=== PATIENT | female | born 1965 | race Caucasian/White ===

== ENCOUNTER 2020-06-15 16:26 | Outpatient (REF) | payer OTHER, SELFPAY ==
--- NOTE | ~2020-06-15 | XR_ITS ---
EXAMINATION: XR KNEE, LEFT CLINICAL INFORMATION: Injury COMPARISON: None TECHNIQUE: Four views of the left knee. FINDINGS: No visible acute fracture or dislocation. Normal alignment. Joint spaces are maintained. No significant effusion. XR/XR knee LT 4V IMPRESSION: No radiographic evidence of acute osseous abnormality.
== END 2020-06-15 16:27 | disposition home or self-care (01) ==
LOC: HO.HMGCX 16:26
PROVIDERS: PCP Nurse Practitioner Family; Visit Provider Physician Assistant Medical
DX: S89.92XA Unspecified injury of left lower leg, initial encounter (principal)
CPT/HCPCS: 73564

== ENCOUNTER 2021-02-03 06:03 | Outpatient (REF) | payer OTHER, SELFPAY | END 2021-02-03 06:04 | disposition home or self-care (01) | LOC: HO.HMGCLDS 06:03 | PROVIDERS: PCP Nurse Practitioner Family; Visit Provider Nurse Practitioner Family | DX: Z13.89 Encounter for screening for other disorder (principal) ==

== ENCOUNTER 2021-02-03 06:08 | Outpatient (REF) | payer OTHER, SELFPAY ==
[2021-02-03 11:37] LABS: Appearance Urine CLEAR; Color Urine YELLOW; Glucose Urine UA NEG (NEG); Leukocyte Esterase Urine NEG (NEG); Nitrite Urine NEG (NEG); Specific Gravity - Urine 1.015 (1.005-1.025); UACC Culture Trigger NO; Urine Blood TRACE (NEG); Urine Ketones NEG (NEG); Urine Protein NEG (NEG-TRACE)
[2021-02-03 12:14] LABS: Alanine Aminotransferase 20 U/L (0-31); Albumin Level 4.2 g/dL (3.5-5.0); Alkaline Phosphatase 86 U/L (39-117); Anion Gap 14 (12-20); Aspartate Amino Transferase 23 U/L (5-31); Bilirubin Total 0.8 mg/dL (0.0-1.0); Blood Urea Nitrogen 14 mg/dL (9-16); Calcium 9.1 mg/dL (8.4-10.2); Carbon Dioxide 22 mmol/L (22-29); Chloride 104 mmol/L (96-108); Cholesterol 176 mg/dL; Estimated Glomerular Filt Rate > 60; Glucose Fasting 88 mg/dL (60-99); HDL Cholesterol 53 mg/dL; LDL Cholesterol Calculated 93 mg/dl; Potassium 4.1 mmol/L (3.3-5.1); Sodium 136 mmol/L (135-145); Triglycerides 152 mg/dL
[2021-02-03 12:16] LABS: Squamous Epithelial Cell Urine 1+ /LPF
[2021-02-03 12:17] LABS: Bacteria Urine 1+ /LPF; RBC Urine 0-2 /HPF (0); WBC Urine 0-2 /HPF (0-4)
[2021-02-03 12:37] LABS: TSH reflex Free T4 5.81 uIU/mL (0.32-4.0)
[2021-02-03 13:18] LABS: Free T4 (Free Thyroxine) 0.92 ng/dL (0.71-1.85)
== END 2021-02-03 06:09 | disposition home or self-care (01) ==
LOC: HO.HMGCLDS 06:08
PROVIDERS: PCP Nurse Practitioner Family; Visit Provider Internal Medicine
DX: Z00.00 Encounter for general adult medical examination without abnormal findings (principal); Z20.822 Contact with and (suspected) exposure to COVID-19; R79.89 Other specified abnormal findings of blood chemistry
CPT/HCPCS: 36415; 80053; 80061; 81001; 84439; 84443; C9803; U0003; U0005

== ENCOUNTER 2021-03-30 08:29 | Outpatient (REF) | payer OTHER, SELFPAY ==
[2021-03-30 12:08] LABS: TSH reflex Free T4 2.51 uIU/mL (0.32-4.0)
[2021-04-01 05:31] LABS: Thyroid Peroxidase Antibodies 2 IU/mL (<9)
== END 2021-03-30 08:30 | disposition home or self-care (01) ==
LOC: HO.HMGCLDS 08:29
PROVIDERS: Visit Provider Nurse Practitioner Family
DX: R79.89 Other specified abnormal findings of blood chemistry (principal)
CPT/HCPCS: 36415; 84443; 86376

== ENCOUNTER 2021-05-26 10:21 | Outpatient (REF) | payer OTHER, SELFPAY ==
--- NOTE | ~2021-05-26 | MM_ITS ---
EXAMINATION: MM SCREENING DIGITAL BREAST TOMOSYNTHESIS, BILATERAL CLINICAL INFORMATION: Screening. Asymptomatic. Remote history left surgery over 20 years ago. The lifetime risk of breast cancer based on the Tyrer-Cuzick Model is 7%. COMPARISON: Mammography: 08/15/2018, 04/05/2017, 02/19/2016 TECHNIQUE: Digital breast tomosynthesis is performed in both the craniocaudal and mediolateral oblique views along with computer-aided detection (CAD). Synthesized 2D images are generated from the tomosynthesis. Additional left CC view is provided. FINDINGS: There are scattered areas of fibroglandular density (ACR BI-RADS breast composition Category b). There are scattered stable asymmetries similar to prior exams. There is no interval mass or architectural abnormality or developing density or abnormal calcifications. The axilla and skin contours are unremarkable. The left breast has a chronic macrolobulated mass mid 12:00 position similar in size and morphology to prior studies. There are some fine calcifications associated with the mass which are also without change. MM/MM tomosynthesis screening BI IMPRESSION: No significant changes from prior exams. ASSESSMENT: BI-RADS 2: Benign RECOMMENDATION: Routine annual mammography screening. This patient's information was entered into a reminder system with a target due date for their next mammogram.
== END 2021-05-26 10:22 | disposition home or self-care (01) ==
LOC: HO.MAMMO 10:21
PROVIDERS: PCP Nurse Practitioner Family; Visit Provider Nurse Practitioner Family
DX: Z12.31 Encounter for screening mammogram for malignant neoplasm of breast (principal)
CPT/HCPCS: 77063; 77067

== ENCOUNTER 2021-06-03 09:40 | Outpatient (REF) | payer OTHER, SELFPAY ==
--- NOTE | ~2021-06-03 | XR_ITS ---
Indication: Pain EXAMINATION: Right foot and right ankle 3 views the right foot do not demonstrate evidence for an acute fracture or dislocation. Spurring in the posterior calcaneus is noted. Scattered degenerative changes. 2 detail views of the right ankle do not demonstrate acute finding. No fracture or dislocation. XR/XR ankle RT 2V IMPRESSION: No acute finding. Right ankle, right foot
--- NOTE | ~2021-06-03 | XR_ITS ---
Indication: Pain EXAMINATION: Right foot and right ankle 3 views the right foot do not demonstrate evidence for an acute fracture or dislocation. Spurring in the posterior calcaneus is noted. Scattered degenerative changes. 2 detail views of the right ankle do not demonstrate acute finding. No fracture or dislocation. XR/XR foot RT min 3V IMPRESSION: No acute finding. Right ankle, right foot
== END 2021-06-03 09:41 | disposition home or self-care (01) ==
LOC: HO.HMGCX 09:40
PROVIDERS: Visit Provider Nurse Practitioner Family
DX: M79.671 Pain in right foot (principal); M25.571 Pain in right ankle and joints of right foot
CPT/HCPCS: 73600; 73630

== ENCOUNTER 2022-05-31 09:32 | Outpatient (REF) | payer OTHER, SELFPAY ==
[2022-06-01 19:43] LABS: HPV mRNA E6/E7 rflx Not Detected (Not Detected)
== END 2022-05-31 09:33 | disposition home or self-care (01) ==
LOC: HO.LNP 09:32
PROVIDERS: Visit Provider Advanced Practice Midwife
DX: Z01.419 Encounter for gynecological examination (general) (routine) without abnormal findings (principal); Z11.51 Encounter for screening for human papillomavirus (HPV)
CPT/HCPCS: 87624; 88142

== ENCOUNTER 2022-05-31 09:59 | Outpatient (REF) | payer OTHER, SELFPAY ==
--- NOTE | ~2022-05-31 | MM_ITS ---
EXAMINATION: MM SCREENING DIGITAL BREAST TOMOSYNTHESIS, BILATERAL CLINICAL INFORMATION: Screening. Asymptomatic. The lifetime risk of breast cancer based on the Tyrer-Cuzick Model is 5%. COMPARISON: Mammography: 05/26/2021, 08/15/2018, 04/05/2017, 02/19/2016, 02/16/2016 TECHNIQUE: Digital breast tomosynthesis is performed in both the craniocaudal and mediolateral oblique views along with computer-aided detection (CAD). Synthesized 2D images are generated from the tomosynthesis. FINDINGS: There are scattered areas of fibroglandular density (ACR BI-RADS breast composition Category b). Parenchymal pattern is similar to prior studies and there is no interval mass, architectural abnormality, or developing density. No abnormal calcifications. There is a chronic macrolobulated mass anterior mid 12:00 left breast with some internal calcifications similar to multiple prior studies. The axilla and skin contours are unremarkable. No significant changes. MM/MM tomosynthesis screening BI IMPRESSION: No mammographic evidence of malignancy. ASSESSMENT: BI-RADS 2: Benign RECOMMENDATION: Routine annual mammography screening. This patient's information was entered into a reminder system with a target due date for their next mammogram.
== END 2022-05-31 10:00 | disposition home or self-care (01) ==
LOC: HO.MAMMO 09:59
PROVIDERS: PCP Nurse Practitioner Family; Visit Provider Nurse Practitioner Family
DX: Z12.31 Encounter for screening mammogram for malignant neoplasm of breast (principal)
CPT/HCPCS: 77063; 77067

== ENCOUNTER 2022-10-07 14:11 | Outpatient (AMB) | payer OTHER, SELFPAY ==
[2022-10-07 14:37] VITALS: BP 118/68; PULSE 93; TEMP 36.3; O2SAT 99; BMI 29.0
--- NOTE | 2022-10-07 14:37 | AM.OFFWIN_ITS ---
Intake Vital Signs 10/07/22 14:37 Height 5 ft 5 in Weight 174 lb 4 oz BMI 29.0 BP 118/68 Blood Pressure Location Lt brachial Position Sitting Pulse 93 Pulse Source Pulse Oximeter Temp 97.3 F Temp Source Temporal Artery Scan Pulse Oximetry (%) 99 Oxygen Delivery Method Room Air Intake Visit Reasons: EST/numbness in fingers and toes Intake Note: Pt is here c/o feeling numbness in all her fingers and toes. Pt states it has been happening for about one month. Pt states it comes and goes but has been getting worse. Pt states she was diagnosed with degenerative disc disease in her neck and back. Patient Tobacco Use Status: Current everyday Tobacco user Allergies codeine [CODEINE] Allergy (Severe, Verified 10/07/22 14:38) ITCHY, itch aspirin Allergy (Unknown, Verified 10/07/22 14:38) upset stomach Do you need a note to return to daycare/school/sports/work: No HPI HPI Comments History of Present Illness Details This is a 57-year-old female who presents to the office today for sick visit. Patient complaining of symmetrical numbness of her toes and fingers/hands . Patient states the numbness of her fingers/hands is chronic but has been worsening over the past several weeks; she reports a history of degenerative disc disease of her cervical spine. She denies any new neck injury/trauma. She also reports somewhat new numbness of her toes and her right lower extremity occasionally gives out on her. She denies any falls or syncope. She denies any new back injury/trauma. She denies any red flag symptoms including saddle anesthesias, fever/chills, or bowel/bladder incontinence/retention. She denies a history of diabetes mellitus. [facility] Medical History High cholesterol Hypertension Surgical History History of lumpectomy of left breast History of tonsillectomy Status post cryoablation Family History Father Heart failure CVD (cardiovascular disease) S/P triple vessel bypass Mother Lung cancer Social History (Reviewed 05/31/22 @ 11:15 by ANTONIETTA Burkett Housing: Apartment Alcohol intake: current Alcohol intake frequency: a few times a week Patient Tobacco Use Status: Current everyday Tobacco user Cigarettes Per Day: 8 e-Cigarette/Vaping Use: Never Used Second Hand Smoke Exposure: No service: No Current occupational status: disabled Sexual orientation: Straight/Heterosexual Gender identity: Female Review of Systems Const All systems reviewed & are unremarkable except as noted in HPI and below Reports no additional complaints Eyes Reports no additional complaints ENT Reports no additional complaints Card Reports no additional complaints Resp Reports no additional complaints GI Reports no additional complaints Reports no additional complaints Musc Reports no additional complaints Skin/Breast Reports system reviewed and no additional complaints, except as documented Neuro Reports no additional complaints Psych Reports no additional complaints Endo Reports no additional complaints Giovani/Lymph Reports no additional complaints Aller/Immun Reports no additional complaints Physical Exam Vital Signs: Last Vital Signs Temp 97.3 F 10/07/22 14:37 Pulse 93 10/07/22 14:37 BP 118/68 10/07/22 14:37 Pulse Ox 99 10/07/22 14:37 Oxygen Delivery Method Room Air 10/07/22 14:37 BMI result Body Mass Index 29.0 Const General: cooperative, healthy appearing, no acute distress and well developed Orientation/consciousness: patient oriented x3 HEENT Head: Yes normal to inspection Ears: hearing grossly normal bilaterally General nose exam: Normal external nose present Face and sinus: Yes normal facial exam Mouth: Normal oral and palatal mucosa present Eyes General: appearance normal, both eyes and all related structures Pupils: Equal, round and reactive pupils present EOM: EOMs intact bilaterally Resp Effort & Inspection: normal respiratory effort and no respiratory distress Auscultation: clear to auscultation bilaterally Cardio Rate: regular rate Rhythm: regular rhythm Heart sounds: no gallops, no murmurs and no rubs Peripheral pulses: Peripheral pulses 2+ throughout GI Inspection: No distended Palpation (GI): Soft to palpation and nontender Auscultation: normal bowel sounds Back/Spine/Pelvis Other: No midline or spinous process tenderness to palpation throughout the cervical, thoracic, or lumbar spine. Mild cervical and lumbar paraspinal musculature tenderness to palpation with some palpable spasms. Negative straight leg raise bilaterally. DTRs are 2+ bilaterally. Cervical Spine: No cervical muscular tenderness Skin General skin exam: no rashes or lesions noted Neuro General: patient oriented x3 Cranial nerves: Yes CN's II-XII intact bilaterally and Yes Equal, round and reactive pupils present Gait exam (Neuro): Normal gait present Motor exam (neuro): 5/5 motor strength present throughout Extrem General: Yes normal to inspection, Yes full ROM and Yes no clubbing, cyanosis or edema Psych Appearance: grossly normal Mental Status: mental status grossly normal Assessment & Plan Assessment & Plan (1) Peripheral neuropathy: Code(s): G62.9 - Polyneuropathy, unspecified (2) Radiculopathy affecting upper extremity: Code(s): M54.10 - Radiculopathy, site unspecified Plan This is a 57-year-old female presenting to the office with numbness of fingers and toes and some weakness of her right lower extremity. Differential diagnosis includes peripheral neuropathy versus lumbar/cervical radiculopathy. Her vital signs are stable. Patient's physical examination is benign with the exception of mild cervical and lumbar paraspinal musculature and spasm. Trial p.o. gabapentin 300 mg at bedtime and p.o. methocarbamol 500 mg at bedtime as needed for muscle spasms. Patient has an appointment scheduled with her PCP on November 23, 2022. She was encouraged to discuss these new symptoms and possibly undergo further imaging including CT or MRI of her cervical/lumbar spine to evaluate for worsening degenerative disc disease causing disc herniation/nerve impingement and to further evaluate for diabetes mellitus. Patient was advised to proceed directly to the emergency room if she were to develop any red flag symptoms. Patient verbalizes her understanding and she is in agreement with the plan. Patient was advised that gabapentin and methocarbamol can be mildly sedating so she was advised not to drive or operate heavy machinery while utilizing these medications. Patient also baby-sits her granddaughter and she was advised not to utilize his medications while taking care of children. Medications: New gabapentin 300 mg PO BEDTIME 30 caps 0RF methocarbamol 500 mg PO BEDTIME PRN 30 tabs 0RF muscle spasm Coding Level of Care Code Est Pt Level 3 (01060) Diagnoses Peripheral neuropathy G62.9 Radiculopathy affecting upper extremity M54.10
== END 2022-10-07 16:01 | disposition home or self-care (01) ==
PROVIDERS: PCP Nurse Practitioner Family; Visit Provider Physician Assistant Medical
DX: G62.9 Polyneuropathy, unspecified (principal)
CPT/HCPCS: 99213

== ENCOUNTER 2023-03-06 08:00 | Outpatient (AMB) | payer OTHER, SELFPAY ==
[2023-03-06 08:09] VITALS: BP 116/72; PULSE 80; TEMP 36.7; O2SAT 97
--- NOTE | 2023-03-06 08:09 | AM.OFFWIN_ITS ---
Intake Vital Signs 03/06/23 08:09 Height 5 ft 5 in BP 116/72 Blood Pressure Location Rt brachial Position Sitting Pulse 80 Pulse Source Pulse Oximeter Temp 98.0 F Temp Source Temporal Artery Scan Pulse Oximetry (%) 97 Intake Visit Reasons: EST/right eye irritation (lobby) Intake Note: pt is here for c/o right eye irritation Patient Tobacco Use Status: Current everyday Tobacco user Allergies codeine [CODEINE] Allergy (Severe, Verified 03/06/23 08:09) ITCHY, itch aspirin Allergy (Unknown, Verified 03/06/23 08:09) upset stomach Do you need a note to return to daycare/school/sports/work: Yes HPI HPI Comments History of Present Illness Details Patient presents to the walkin today for irritation to the right eye since yesterday. Initially felt like she had an eyelash in her eye, flushed but irritation persisted. Endorses right eye itching, redness and drainage since yesterday. Today eye was crusted shut when she woke up. She states today left eye started to be red and itchy also Denies pain to the eye, denies vision changes, headache. Patient denies pain with eye movement. Denies fever, sore throat or ear ache. Denies trauma to the eye. [facility] Medical History High cholesterol Hypertension Surgical History History of lumpectomy of left breast History of tonsillectomy Status post cryoablation Family History Father Heart failure CVD (cardiovascular disease) S/P triple vessel bypass Mother Lung cancer Social History Housing: Apartment Alcohol intake: current Alcohol intake frequency: a few times a week Patient Tobacco Use Status: Current everyday Tobacco user Cigarettes Per Day: 8 e-Cigarette/Vaping Use: Never Used Second Hand Smoke Exposure: No service: No Current occupational status: disabled Sexual orientation: Straight/Heterosexual Gender identity: Female Review of Systems Const All systems reviewed & are unremarkable except as noted in HPI and below Physical Exam Vital Signs: Last Vital Signs Temp 98.0 F 03/06/23 08:09 Pulse 80 03/06/23 08:09 BP 116/72 03/06/23 08:09 Pulse Ox 97 03/06/23 08:09 General: awake, alert, oriented. Answers questions appropriately. Fully engaged in examination. Skin: warm, dry, intact HEENT: Normocephalic. Hearing intact. eye: + clear discharge, conjunctival injection bilaterally, right worse than left. PERRL Cardiac: External chest normal in appearance. Respiratory: No cough, audible wheezing or stridor. Abdomen: without gross distension. MS: No obvious swelling or deformities. Neurological: Oriented to person, place, time and situation. Thought process in tact. Psychiatric: Appropriate mood and affect. Good judgment and insight. Assessment & Plan Assessment & Plan (1) Conjunctivitis: Code(s): H10.9 - Unspecified conjunctivitis Qualifiers: Conjunctivitis type: acute Laterality: bilateral Plan Patient presents to the walkin for bilateral eye irritation +discharge and conjunctival injection consistent with conjunctivitis bilaterally ABX drops, 1 drop to both eyes four times daily. Avoid touching, rubbing the eyes. Do not use same area of facecloth to clean both eyes. Wash hands often. All questions and concerns were answered during the visit. Patient agrees with the plan. Follow up with pcp or return to [facility] and home for any new or worsening symptoms. Medications: New polymyxin B sulf-trimethoprim 10,000 unit- 1 mg/mL while awake; do not exceed 6 doses in 24 hours 1 drp ophthalmic (eye) QID 7 days 10 mL 0RF Coding Level of Care Code Est Pt Level 4 (50466) Diagnoses Conjunctivitis H10.9 Conjunctivitis type: acute Laterality: bilateral
== END 2023-03-06 09:01 | disposition home or self-care (01) ==
PROVIDERS: PCP Nurse Practitioner Family; Visit Provider Registered Nurse Emergency
DX: H10.9 Unspecified conjunctivitis (principal)
CPT/HCPCS: 99214

== ENCOUNTER 2023-06-23 08:04 | Outpatient (REF) | payer OTHER, SELFPAY ==
--- NOTE | ~2023-06-23 | MM_ITS ---
EXAMINATION: MM SCREENING DIGITAL BREAST TOMOSYNTHESIS, BILATERAL CLINICAL INFORMATION: Screening. Asymptomatic. COMPARISON: Mammography: This study is compared with prior exams dating back to 2018. TECHNIQUE: Digital breast tomosynthesis is performed in both the craniocaudal and mediolateral oblique views along with computer-aided detection (CAD). Synthesized 2D images are generated from the tomosynthesis. FINDINGS: There are scattered areas of fibroglandular density (ACR BI-RADS breast composition Category b). There are no significant masses, abnormal calcifications, or other abnormalities. There is unchanged, benign, oval focal asymmetry in the superior aspect of the left breast which is associated with unchanged benign calcifications. MM/MM tomosynthesis screening BI IMPRESSION: No mammographic evidence of malignancy. ASSESSMENT: BI-RADS BI-RADS 1 - Negative RECOMMENDATION: Routine annual mammography screening. 1 year F/U This examination should not preclude the clinical evaluation of a suspicious palpable abnormality. This patient's information was entered into a reminder system with a target due date for their next mammogram.
== END 2023-06-23 08:05 | disposition home or self-care (01) ==
LOC: HO.MAMMO 08:04
PROVIDERS: PCP Nurse Practitioner Family; Visit Provider Nurse Practitioner Family
DX: Z12.31 Encounter for screening mammogram for malignant neoplasm of breast (principal)
CPT/HCPCS: 77063; 77067

== ENCOUNTER → 2023-06-23 08:30 | Outpatient (BNV) | payer OTHER, SELFPAY | PROVIDERS: PCP Nurse Practitioner Family; Visit Provider Radiology Diagnostic Radiology | DX: Z12.31 Encounter for screening mammogram for malignant neoplasm of breast (principal) | CPT/HCPCS: 77063; 77067 ==

== ENCOUNTER 2023-09-12 12:49 | Outpatient (AMB) | payer OTHER, SELFPAY ==
--- NOTE | 2023-09-12 13:01 | MHC.PC.OV ---
Vital Signs 09/12/23 13:04 Height 5 ft 5 in Weight 166 lb BMI 27.6 BP 112/70 Blood Pressure Location Rt brachial Position Sitting Pulse 68 Pulse Source Pulse Oximeter Pulse Oximetry (%) 97 Oxygen Delivery Method Room Air Intake Visit Reasons: PE last seen 2021 Intake Note: Patient here for physical exam. Mammo:2023 Pap: 2023 Allergies codeine [CODEINE] Allergy (Severe, Verified 09/12/23 15:03) ITCHY, itch aspirin Allergy (Unknown, Verified 09/12/23 15:03) upset stomach Medication List - Last Reconciled 09/12/23 by AMBER Sinha polymyxin B sulf-trimethoprim 10,000 unit- 1 mg/mL 1 drp ophthalmic (eye) QID 7 days Tobacco use date assessed: 09/12/23 Dental Screening Dental Screen Date: 09/12/23 Did you have a dental visit in the last 12 months?: No Did you have a dental problem in the last 6 months where you did not have access to dental care?: No Was dental information given to patient?: Patient declined HPI PE last seen 2021 HPI Details Pt is here for a PE. Will order labs. Colon screen is up to date. Mammo is up to date. 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 Pt has been smoking since age 11. She has smoked up to 2 packs per day but mostly smokes 1 pack per day. Will refer for low-dose CT. Pt is fair skinned and has multiple freckles and skin lesions. Will refer to derm. [facility] Medical History Hypertension High cholesterol Surgical History Status post cryoablation History of lumpectomy of left breast History of tonsillectomy Family History Father Heart failure CVD (cardiovascular disease) S/P triple vessel bypass Mother Lung cancer Social History Housing: Apartment Alcohol intake: current Alcohol intake frequency: a few times a week Patient Tobacco Use Status: Current everyday Tobacco user Cigarettes Per Day: 8 e-Cigarette/Vaping Use: Never Used Second Hand Smoke Exposure: No service: No Current occupational status: disabled Sexual orientation: Straight/Heterosexual Gender identity: Female Cognitive needs: No Hearing needs: No Vision needs: No Questionnaire PHQ-9 Over the last 2 weeks, how often have you been bothered by any of the following problems? 1. Little interest or pleasure in doing things: not at all 2. Feeling down, depressed, or hopeless: not at all 3. Trouble falling or staying asleep, or sleeping too much: several days 4. Feeling tired or having little energy: several days 5. Poor appetite or overeating: not at all 6. Feeling bad about yourself - or that you are a failure or have let yourself or your family down: not at all 7. Trouble concentrating on things, such as reading the newspaper or watching television: not at all 8. Moving or speaking so slowly that other people could have noticed. Or the opposite - being so fidgety or restless that you have been moving around a lot more than usual: not at all 9. Thoughts that you would be better off or of hurting yourself in some way: not at all Total score: 2 Depression Screening Interpretation: Negative Depression Screening Done: Yes 28035 - PHQ-9 Billing: Yes Source: Developed by Drs. Damon Zavala, Geraldine Will, Vinny Don and colleagues, with an educational narendra from [employer]. Thrive Questionnaire Date Thrive assessed: 09/12/23 I am a: Patient What is your living situation today?: I have a steady place to live Within the past 12 months, did the food you bought not last and you didn't have the money to get more?: Sometimes True Within the past 12 months, did you worry whether your food would run out before you got money to buy more?: Sometimes True Do you have trouble paying for medicines?: No Do you have trouble getting transportation to medical appointments?: No Do you have trouble paying your heating and electricity bill?: No Do you have trouble taking care of your child, family member or friend?: No Do you have trouble with day-to-day activities such as bathing, preparing meals, shopping, managing finances, etc.?: No Are you currently unemployed and looking for a job?: No Are you interested in more education?: No Please select the resources that you would like help with: Housing/Detention Currently or been in a relationship where the following occur: No concerns reported THRIVE Score: 2 AUDIT C Alcohol Use Questionnaire (AUDIT-C) 1. How often do you have a drink containing alcohol?: 2-4 times a month 2. How many drinks containing alcohol do you have on a typical day when you are drinking?: 1 or 2 3. How often do you have six or more drinks on one occasion?: Never Total Score: 2 JOSE-7 AMB Questionnaire JOSE-7 Date JOSE - 7 assessed: 09/12/23 Feeling nervous, anxious, or on edge: 0 = Not at all Not being able to stop or control worryin = Several days Worrying too much about different things: 1 = Several days Trouble relaxin = Not at all Being so restless that it is hard to sit still: 0 = Not at all Becoming easily annoyed or irritable: 0 = Not at all Feeling afraid as if something awful might happen: 0 = Not at all Total JOSE-7 score (0-4 normal; 5-9 mild; 10-14 moderate; 15-21 severe): 2 Source: Developed by Drs. Damon Zavala, Geraldine Will, Vinny Don and colleagues, with an educational narendra from [employer]. JOSE-7 Assessment Billing JOSE-7 Assessment Tool: JOSE-7 Assessment 94194 Review of Systems Const Denies chills and Denies fever(s) Eyes Denies blurry vision ENT Denies vertigo, Denies dizziness and Denies sore throat Card Denies chest pain at rest, Denies chest pain with activity, Denies diaphoresis, Denies dyspnea and Denies dyspnea on exertion Resp Denies cough, Denies dyspnea, Denies dyspnea on exertion and Denies wheezing GI Denies abdominal pain, Denies melena, Denies hematochezia, Denies constipation, Denies diarrhea and Denies loose stools Denies hematuria Musc Denies numbness and Denies tingling Skin/Breast Denies lesions Neuro Denies vertigo, Denies dizziness, Denies numbness and Denies tingling Psych Denies anxiety, Denies depression, Denies homicidal ideation, Denies suicidal ideation and Denies other (substance abuse) Aller/Immun Denies wheezing Physical exam (Primary Care) Vital Signs: Last Vital Signs Pulse 68 09/12/23 13:04 BP 112/70 09/12/23 13:04 Pulse Ox 97 09/12/23 13:04 Oxygen Delivery Method Room Air 09/12/23 13:04 BMI result Body Mass Index 27.6 Tobacco/Smoking Status: Tobacco use Status Tobacco use date assessed 09/12/23 09/12/23 13:08 Patient Tobacco Use Status Current everyday Tobacco 09/12/23 13:02 e-Cigarette/Vaping Use Never Used 09/12/23 13:02 PHQ-9: PHQ-9 Score PHQ-9: Total score 2 09/12/23 13:22 Depression Screening Interpretation: Negative Thrive Assessment: Date of Thrive Assessment Date Thrive assessed 09/12/23 09/12/23 13:02 Currently or been in a relationship where the following occur: No concerns reported Const General: cooperative Nutritional Appearance: well nourished Orientation/consciousness: patient oriented x3 HENMT Head: Yes normal to inspection, Yes normocephalic and Yes atraumatic Ears: TM's normal bilaterally Eyes General: appearance normal, both eyes and all related structures Alignment and Position: alignment normal and position normal Neck Neck: Yes normal visual inspection and Yes no lymphadenopathy Thyroid: Thyroid normal Resp Effort & Inspection: normal respiratory effort Auscultation: clear to auscultation bilaterally Cardio Rate: regular rate Rhythm: regular rhythm Heart sounds: S1 normal heart sound present, S2 normal heart sound present and no murmurs GI Palpation (GI): Soft to palpation and nontender Auscultation: normal bowel sounds Skin Other: very fair skinned, multiple freckles throughout body, small raised lesion to right shoulder, raised darker lesion to left upper back, papular raised lesion to right trap region Rashes: no rashes Neuro General: patient oriented x3, moves all extremities, no focal motor deficits and deep tendon reflexes 2+ bilaterally Romberg Test: Negative Psych Appearance: grossly normal Mental Status: mental status grossly normal Speech and movement: Normal speech and movement present Affect: normal affect Attitude: cooperative Thought process: Normal thought process present Thought content: Normal thought content present Insight: Good insight present (Psych) Judgement: Good judgement present (Psych) Assessment and Plan Assessment & Plan (1) Smoker: Code(s): F17.200 - Nicotine dependence, unspecified, uncomplicated Plan: Referred for low-dose CT (2) Vitamin D deficiency: Code(s): E55.9 - Vitamin D deficiency, unspecified Plan: Labs ordered (3) Skin lesion: Code(s): L98.9 - Disorder of the skin and subcutaneous tissue, unspecified Plan: Referred to derm (4) Blood typing encounter: Code(s): Z.83 - Encounter for blood typing Plan The patient agreed to the use of a registered medical assistant for this encounter. Scribed for LISA Salas-BC by Mayi Ward registered medical assistant, on 09/12/2023 at 13:25 EST. Orders: Orders Complete Blood Count Auto Diff Today F17.200 - Nicotine dependence, unspecified, uncomplicated Comprehensive [place]. Panel Fast Today F17.200 - Nicotine dependence, unspecified, uncomplicated TSH reflex Free T4 Today F17.200 - Nicotine dependence, unspecified, uncomplicated Lipid Panel Today F17.200 - Nicotine dependence, unspecified, uncomplicated UA CC w/rflx Micro + Cult Today F17.200 - Nicotine dependence, unspecified, uncomplicated Vitamin D 25-OH Total Today E55.9 - Vitamin D deficiency, unspecified ABO RH Type Today Z01.83 - Encounter for blood typing Referrals Lung Cancer Screening Referral F17.200 - Nicotine dependence, unspecified, uncomplicated Dermatology Referral L98.9 - Disorder of the skin and subcutaneous tissue, unspecified Coding Level of Care Code Est Pt Prev Care 40-64y(01711) Diagnoses Smoker F17.200 Vitamin D deficiency E55.9 Skin lesion L98.9 Blood typing encounter Z Additional Codes JOSE-7 Assessment Billing - JOSE-7 Assessment Tool: JOSE-7 Assessment 25975 ([id number])
[2023-09-12 13:04] VITALS: BP 112/70; PULSE 68; O2SAT 97; BMI 27.6
== END 2023-09-12 13:49 | disposition home or self-care (01) ==
PROVIDERS: PCP Nurse Practitioner Family; Visit Provider Nurse Practitioner Family
DX: Z00.00 Encounter for general adult medical examination without abnormal findings (principal); F17.210 Nicotine dependence, cigarettes, uncomplicated; E55.9 Vitamin D deficiency, unspecified; L98.9 Disorder of the skin and subcutaneous tissue, unspecified; Z01.83 Encounter for blood typing
CPT/HCPCS: 99396

== ENCOUNTER 2023-09-13 06:06 | Outpatient (REF) | payer OTHER, SELFPAY ==
[2023-09-13 10:16] LABS: MANUAL DIFF FLAG NO
[2023-09-13 10:18] LABS: Basophils Absolute Auto 0.1 X10*3/uL (0.0-0.2); Basophils Percent Auto 0.8 % (0-2); Eosinophils Absolute Auto 0.2 X10*3/uL (0.0-0.4); Eosinophils Percent Auto 2.6 % (0-4); Hematocrit 41.9 % (37.0-47.0); Imm Gran Abs Auto 0.03 X10*3/uL (0.00-0.03); Imm Gran Pct Auto 0.5 % (0.0-0.4); Lymphocytes Absolute Auto 2.3 X10*3/uL (1.2-4.9); Lymphocytes Percent Auto 35.3 % (20-40); Mean Corpuscular HGB Conc 33.4 g/dl (31.0-35.0); Mean Corpuscular Hemoglobin 30.4 pg (27.0-33.0); Mean Corpuscular Volume 90.9 fL (80.0-98.0); Mean Platelet Volume 10.5 fL (9.4-12.3); Monocytes Absolute Auto 0.3 X10*3/uL (0.1-1.2); Monocytes Percent Auto 3.8 % (2-11); Neutrophils Absolute Auto 3.8 x10*3/uL (2.0-8.3); Platelet Count 214 X10*3/uL (160-400); Red Blood Count 4.61 X10*6/uL (4.20-5.50); Red Cell Distribution Width 13.7 % (11.0-16.0); White Blood Count 6.6 X10*3/uL (4.8-10.8)
[2023-09-13 11:06] LABS: Alanine Aminotransferase 14 U/L (0-31); Albumin Level 4.3 g/dL (3.5-5.0); Alkaline Phosphatase 75 U/L (39-117); Anion Gap 12 (12-20); Aspartate Amino Transferase 18 U/L (5-31); Bilirubin Total 0.5 mg/dL (0.0-1.0); Blood Urea Nitrogen 12 mg/dL (9-16); Calcium 9.3 mg/dL (8.4-10.2); Carbon Dioxide 25 mmol/L (22-29); Chloride 106 mmol/L (96-108); Cholesterol 167 mg/dL (<200); Estimated Glomerular Filt Rate > 60; Glucose Fasting 93 mg/dL (60-99); HDL Cholesterol 50 mg/dL (>40); LDL Cholesterol Calculated 105 mg/dL (<100); Potassium 4.1 mmol/L (3.3-5.1); Sodium 139 mmol/L (135-145); Total Protein 6.9 g/dL (6.5-8.0); Triglycerides 64 mg/dL (<150)
[2023-09-13 11:22] LABS: Appearance Urine Clear; Color Urine Yellow; Glucose Urine UA Negative (Negative); Leukocyte Esterase Urine Negative (Negative); Nitrite Urine Negative (Negative); PH 5.5 (5.0-9.0); Urine Blood Negative (Negative); Urine Ketones Negative (Negative); Urine Protein Negative (Neg-Trace)
[2023-09-13 11:27] LABS: TSH reflex Free T4 4.46 uIU/mL (0.32-4.0); Vitamin D 25-OH Total 46.3 ng/mL (>30)
[2023-09-13 12:05] LABS: Free T4 (Free Thyroxine) 0.86 ng/dL (0.71-1.85)
== END 2023-09-13 06:07 | disposition home or self-care (01) ==
LOC: HO.HMGCLDS 06:06
PROVIDERS: PCP Nurse Practitioner Family; Visit Provider Nurse Practitioner Family
DX: Z01.83 Encounter for blood typing (principal); F17.200 Nicotine dependence, unspecified, uncomplicated; E55.9 Vitamin D deficiency, unspecified
CPT/HCPCS: 36415; 80053; 80061; 81003; 82306; 84439; 84443; 85025; 86900; 86901

== ENCOUNTER 2023-09-22 06:04 | Outpatient (REF) | payer OTHER, SELFPAY ==
[2023-09-22 11:03] LABS: TSH reflex Free T4 5.69 uIU/mL (0.32-4.0)
[2023-09-22 12:12] LABS: Free T4 (Free Thyroxine) 0.74 ng/dL (0.71-1.85)
[2023-09-23 09:49] LABS: Thyroid Peroxidase Antibodies 3 IU/mL (<9)
== END 2023-09-22 06:05 | disposition home or self-care (01) ==
LOC: HO.HMGCLDS 06:04
PROVIDERS: PCP Nurse Practitioner Family; Visit Provider Nurse Practitioner Family
DX: R79.89 Other specified abnormal findings of blood chemistry (principal)
CPT/HCPCS: 36415; 84439; 84443; 86376

== ENCOUNTER 2023-10-18 07:46 | Outpatient (AMB) | payer OTHER, SELFPAY ==
--- NOTE | 2023-10-18 07:55 | A.OFFVIS_ITS ---
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 She is doing well with no concerns. Attempting to eat a healthy diet with calcium and vitamin D and stays active with exercise-walks 60min/daily. Currently not sexually active w/partner. Denies any vaginal dryness or irritation. STI testing offered; she declined. Last pap smear; 2022, negative. Last mammogram; 2023. Colonoscopy is UTD. Denies any family history of breast, ovarian or colon cancer. [facility] Medical History (Updated 10/18/23 @ 07:56 by Aurea Sanchez CNM) Hypertension High cholesterol Nicotine dependence, cigarettes, uncomplicated Surgical History (Updated 10/18/23 @ 08:07 by BI Corado) H/O shoulder surgery Status post cryoablation History of lumpectomy of left breast History of tonsillectomy Family History Father Heart failure CVD (cardiovascular disease) S/P triple vessel bypass Mother Lung cancer Social History (Reviewed 09/12/23 @ 13:38 by LISA [facility] Housing: Apartment Alcohol intake: current Alcohol intake frequency: a few times a week Patient Tobacco Use Status: Current everyday Tobacco user Cigarettes Per Day: 15 e-Cigarette/Vaping Use: Never Used Second Hand Smoke Exposure: No service: No Current occupational status: disabled Sexual orientation: Straight/Heterosexual Gender identity: Female Cognitive needs: No Hearing needs: No Vision needs: No Female Reproductive History Menstrual Menopause type: natural Total pregnancies: 3 Full term: 2 Number of Living Children: 2 Ab induced: 1 Date of last pap smear: 05/31/22 (neg pap and hpv) Date of Mammogram: 06/23/23 (Birad 1) Review of Systems Const All systems reviewed & are unremarkable except as noted in HPI and below Reports as per HPI Eyes Reports no additional complaints ENT Reports no additional complaints Card Reports no additional complaints Resp Reports no additional complaints GI Reports as per HPI and Reports no additional complaints Reports as per HPI Musc Reports no additional complaints Skin/Breast Reports as per HPI Neuro Reports no additional complaints Psych Reports no additional complaints Endo Reports no additional complaints Giovani/Lymph Reports no additional complaints Aller/Immun Reports no additional complaints Physical Exam Const General: cooperative, healthy appearing, no acute distress, well developed and alert Orientation/consciousness: patient oriented x3 HEENT Head: Yes normal to inspection Eyes General: appearance normal, both eyes and all related structures Neck Neck: Yes normal visual inspection Thyroid: Thyroid normal Chest Chest palpation & inspection: normal inspection of the chest and other (no puckering, dimpling, peau de orange, retraction, discharge, masses) Breast/axilla inspection: normal inspection of the breasts Breast/axilla palpation: normal palpation of the breasts Resp Effort & Inspection: normal respiratory effort GI Inspection: Yes normal to inspection Palpation (GI): Soft to palpation Rectal Exam - Female: deferred General: Yes bladder normal to palpation External Female Exam: normal external appearance and normal appearance of the urethra Speculum Exam - Vagina: normal appearance of the vagina, normal palpation, normal vaginal discharge and vagina atrophic Speculum Exam - Cervix: normal appearance of the cervix and normal palpation Bimanual exam- vagina & uterus: normal bimanual exam, normal palpation, uterine size normal, bladder normal to palpation, normal palpation and non-tender Bimanual Exam- Adnexa, other: no masses Skin General skin exam: no rashes or lesions noted Rashes: no rashes Neuro General: patient oriented x3 Cognition (Neuro): normal cognition Extrem General: Yes normal to inspection Psych Attitude: cooperative Thought process: Normal thought process present Assessment & Plan Assessment & Plan (1) Encounter for well woman exam with routine gynecological exam: Code(s): Z01.419 - Encounter for gynecological examination (general) (routine) without abnormal findings Category: Medical Plan Discussed: Current recommendations for pap smears per ASCCP guidelines. Breast awareness, periodic self breast exams and yearly mammogram. Maintain a healthy lifestyle, well balanced diet including Calcium 1,200 mg and Vitamin D 600 IU daily, and routine exercise. Contact the office with any postmenopausal bleeding. Patient verbalizes understanding and agrees to the plan of care. She was given opportunity to ask questions and all questions were answered to the best of my ability. RTO in 1 year for annual gate operator exam. This note is constructed using voice recognition software. While every effort has been made to ensure accuracy, channel opener errors may have been included. Coding Level of Care Code Est Pt Prev Care 40-64y(35440) Diagnoses Encounter for well woman exam with routine gynecological exam Z01.419
[2023-10-18 08:05] VITALS: BP 102/60; BMI 27.6
== END 2023-10-18 08:50 | disposition home or self-care (01) ==
LOC: HO.HWS 07:46
PROVIDERS: PCP Nurse Practitioner Family; Visit Provider Advanced Practice Midwife
DX: Z01.419 Encounter for gynecological examination (general) (routine) without abnormal findings (principal)
CPT/HCPCS: 99396

== ENCOUNTER → 2023-10-18 07:46 | Outpatient (BNVA) | payer OTHER, SELFPAY | PROVIDERS: PCP Nurse Practitioner Family; Visit Provider Advanced Practice Midwife | DX: Z01.419 Encounter for gynecological examination (general) (routine) without abnormal findings (principal) | CPT/HCPCS: 99396 ==

== ENCOUNTER 2023-10-27 10:36 | Outpatient (AMB) | payer OTHER, SELFPAY ==
--- NOTE | 2023-10-27 08:00 | A.OFFVIS_ITS ---
Intake Visit Reasons: Current Smoker Allergies codeine [CODEINE] Allergy (Severe, Verified 10/18/23 08:05) ITCHY, itch aspirin Allergy (Unknown, Verified 10/18/23 08:05) upset stomach HPI HPI Current Smoker: Details: Initial visit for this 58yo smoker with a 35PYH. Patient has been smoking since age 11 for 47 years at 1/2-1ppd. For 10 years smoked 2ppd. Now smokes 1/2-1ppd. . Denies marijuana use. Denies second hand smoke exposure. Denies exposure to chemicals or substances like asbestos. . Reports family history of lung cancer. Mother age 72. Denies personal history of cancers. Denies chest CT in last year. . Denies recent travel outside the [place]. Denies recent respiratory illness or recent hospitalization for respiratory issues. Reports testing positive for COVID. Admits receiving COVID Vaccine. x 2. . Denies fever, chills, new/worsening cough, hemoptysis, hoarseness or dysphagia. Denies significant chest pain, significant dyspnea or unintentional weight loss. Patient Lung Cancer Screening Questionnaire reviewed with patient by provider. . Shared Decision Making Completed. Patient meets criteria. Discussed in detail with patient, the risk vs benefit of LDCT screening. Patient consents to proceed with scan. Discussed smoking cessation. [facility] Medical History (Updated 10/27/23 @ 10:43 by Poornima Lacey PA-C) Hypertension High cholesterol Nicotine dependence, cigarettes, uncomplicated Surgical History (Updated 10/18/23 @ 08:07 by BI Corado) H/O shoulder surgery Status post cryoablation History of lumpectomy of left breast History of tonsillectomy Family History Father Heart failure CVD (cardiovascular disease) S/P triple vessel bypass Mother Lung cancer Social History (Updated 10/27/23 @ 10:43 by Poornima Lacey PA-C) Housing: Apartment Alcohol intake: current Alcohol intake frequency: a few times a week Patient Tobacco Use Status: Current everyday Tobacco user Cigarettes Per Day: 15 Years Smoked: (onset 11yo, x 47yrs, max 2ppd, now 1/2-1ppd - 35pyh) e-Cigarette/Vaping Use: Never Used Second Hand Smoke Exposure: No service: No Current occupational status: disabled Sexual orientation: Straight/Heterosexual Gender identity: Female Cognitive needs: No Hearing needs: No Vision needs: No Assessment & Plan Assessment & Plan (1) Nicotine dependence, cigarettes, uncomplicated: Comment: (current smoker, onset 11yo, x 47yrs, max 2ppd, now 1/2-1ppd - 35pyh) Code(s): F17.210 - Nicotine dependence, cigarettes, uncomplicated Category: Medical Plan: - SDM visit completed today in office. - Patient meets criteria for LDCT for lung cancer screening purposes and is asymptomatic. - Smoking cessation counseling offered. Patients can always call [phone]. - Will arrange for a LDCT scan of the chest for screening purposes at [facility]. - Risks, benefits, and alternatives were discussed in detail and the patient agrees to proceed. - Risks discussed include but are not limited to: radiation exposure, anxiety during testing and while awaiting results, false negatives, false positives and possibility of additional intervention such as further imaging or surgical procedures for benign disease. - Benefits are obviously detection of lung cancer at an early stage which can lead to improved outcomes. - Discussed the importance of screening program compliance with adherence to yearly LDCT scan as scheduled - or sooner interval scans for personalized screening regimen. - Discussed follow up plan. Our office will send a letter discussing results and if needed set up phone call and office visit based on CT findings. - Patient educated on results categorization and the management decisions for suspicious findings potentially found on the screening LDCT scan. Any patient with a Lung RADS score of 3 or 4 will be reviewed by a multidisciplinary team at [facility] to form a plan of action in regards to scan findings. - If further work up is warranted for a suspicious lung finding this will be followed by the Lung Cancer Screening program in conjunction with the Thoracic Surgery Department at [facility]. - A copy of the office note and LDCT will be sent to the patient's PCP - as well as documentation on any associated further plans of care. - Incidental findings on LDCT are the PCP's responsibility. These findings are indicated with an S finding on the LDCT Assessment. A note discussing the findings will be sent to the PCP who is then responsible for further management. - All questions answered.? Coding Level of Care Code Lung Cancer Screening G0296 Diagnoses Nicotine dependence, cigarettes, uncomplicated F17.210
== END 2023-10-27 11:04 | disposition home or self-care (01) ==
PROVIDERS: PCP Nurse Practitioner Family; Visit Provider Physician Assistant Medical
DX: F17.210 Nicotine dependence, cigarettes, uncomplicated (principal)
CPT/HCPCS: G0296

== ENCOUNTER 2023-10-27 10:57 | Outpatient (REF) | payer OTHER, SELFPAY ==
--- NOTE | ~2023-10-27 | CT_ITS ---
EXAMINATION: CT LOW-DOSE SCREENING CHEST WITHOUT CONTRAST CLINICAL INFORMATION: Nicotine dependence, cigarettes, uncomplicated. The patient is a current smoker with a 46 pack-year history of smoking. COMPARISON: X-ray chest 10/09/2013. TECHNIQUE: Multidetector volumetric CT imaging of the chest is performed on a Siemens SOMATOM Definition scanner without contrast using low dose technique. Additional 2D coronal and sagittal reformatted images and axial 3D maximum intensity projection (MIP) images are generated on the CT workstation. This CT examination was performed using dose optimization techniques as appropriate, variously including the following: *Automated exposure control *Adjustment of mA and/or kV according to patient size (this includes techniques or standardized protocols for targeted exams where dose is matched to indication/reason for exam; i.e. extremities or head) *Use of iterative reconstruction technique TOTAL EXAM DLP: 46 mGy-cm. CTDIvol: 1.43 mGy. FINDINGS: PULMONARY NODULES: Some small pulmonary nodules are seen, none larger than 3 mm in size (see saved sánchez images). No suspicious lung mass is seen, which is concerning for malignancy. LUNGS: Lungs bilaterally symmetrically expanded. Hclz-ha-gcnimtyo emphysematous changes are present along with mild bronchial thickening without bronchiectasis. No effusion or pneumothorax. Central airways patent. MEDIASTINUM: No mediastinal, hilar or axillary adenopathy or free fluid collection. CORONARY ARTERY CALCIFICATION: None visualized on this study. THYROID GLAND: Unremarkable to the extent seen. CARDIOVASCULAR STRUCTURES: Aortic and heart size normal. No pericardial effusion. CHEST WALL/AXILLA: Unremarkable. UPPER ABDOMEN: Included portions of the solid organs in the upper abdomen unremarkable on noncontrast imaging. OSSEOUS STRUCTURES: No suspicious focal findings. CT/CT lung screening IMPRESSION: No findings seen concerning for malignancy. ASSESSMENT: 1. Lung-RADS Category 2: Benign appearance or behavior of nodules. N/A 2. Lung-RADS Category S: Negative. There are no clinically significant or potentially clinically significant findings not related to the lungs requiring urgent additional evaluation. RECOMMENDATION: Continued routine annual low-dose CT lung screening in 1 year is recommended. An order for CT CHEST LOW DOSE CANCER SCREENING ([id number]) can be placed. Electronically signed by: Linwood Aguila MD 12/15/2023 12:01 PM EDT
== END 2023-10-27 10:58 | disposition home or self-care (01) ==
LOC: HO.CT 10:57
PROVIDERS: PCP Nurse Practitioner Family; Visit Provider Physician Assistant Medical
DX: Z12.2 Encounter for screening for malignant neoplasm of respiratory organs (principal); F17.210 Nicotine dependence, cigarettes, uncomplicated
CPT/HCPCS: 71271; G0296

== ENCOUNTER 2023-11-08 11:09 | Outpatient (AMB) | payer OTHER, SELFPAY ==
[2023-11-08 11:14] VITALS: BP 98/60; PULSE 92; TEMP 36.7; O2SAT 97; BMI 28.5
--- NOTE | 2023-11-08 11:14 | MHC.OFFWIV ---
Intake Vital Signs 11/08/23 11:14 Height 5 ft 5 in Weight 171 lb BMI 28.5 BP 98/60 Blood Pressure Location Rt brachial Position Sitting Pulse 92 Pulse Source Pulse Oximeter Temp 98.0 F Temp Source Oral Pulse Oximetry (%) 97 Oxygen Delivery Method Room Air Intake Visit Reasons: EP Fall. LT ankle/heel pain. Intake Note: pt c/o LT ankle and heel pain due to fall 2 weeks ago. Tripped over kitten toy in the middle of night Patient Tobacco Use Status: Current everyday Tobacco user Allergies codeine [CODEINE] Allergy (Severe, Verified 11/08/23 11:14) ITCHY, itch aspirin Allergy (Unknown, Verified 11/08/23 11:14) upset stomach Do you need a note to return to daycare/school/sports/work: No HPI HPI Comments History of Present Illness Details Patient is a 58-year-old female complaining of left ankle pain and swelling as well as pain on the bottom of her foot, her heel and the top of her foot, all on the left side for the last 2 weeks. She states that she tripped on a cat toy 2 weeks ago and rolled her ankle outwards. She has not been able to rest her ankle, she never wrapped it, used ice or any medications to try to reduce the swelling. 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 [facility] Medical History (Updated 11/08/23 @ 11:36 by Tyesha Fitzpatrick PA-C) Hypertension High cholesterol Nicotine dependence, cigarettes, uncomplicated Surgical History (Updated 10/18/23 @ 08:07 by BI Corado) H/O shoulder surgery Status post cryoablation History of lumpectomy of left breast History of tonsillectomy Family History Father Heart failure CVD (cardiovascular disease) S/P triple vessel bypass Mother Lung cancer Social History (Updated 10/27/23 @ 10:43 by Poornima Lacey PA-C) Housing: Apartment Alcohol intake: current Alcohol intake frequency: a few times a week Patient Tobacco Use Status: Current everyday Tobacco user Cigarettes Per Day: 15 Years Smoked: (onset 11yo, x 47yrs, max 2ppd, now 1/2-1ppd - 35pyh) e-Cigarette/Vaping Use: Never Used Second Hand Smoke Exposure: No service: No Current occupational status: disabled Sexual orientation: Straight/Heterosexual Gender identity: Female Cognitive needs: No Hearing needs: No Vision needs: No Review of Systems Const All systems reviewed & are unremarkable except as noted in HPI and below Physical Exam Vital Signs: Last Vital Signs Temp 98.0 F 11/08/23 11:14 Pulse 92 11/08/23 11:14 BP 98/60 11/08/23 11:14 Pulse Ox 97 11/08/23 11:14 Oxygen Delivery Method Room Air 11/08/23 11:14 BMI result Body Mass Index 28.5 Const General: cooperative, healthy appearing, comfortable and no acute distress Orientation/consciousness: patient oriented x3 Limitations: other limitations (Limping gait secondary to pain of the left ankle) HEENT Head: Yes normal to inspection Resp Effort & Inspection: normal respiratory effort and able to speak in complete sentences Neuro General: patient oriented x3 Extrem Right lower extremity: normal to inspection Left lower extremity: ankle Details: tenderness Location: of the medial malleolus (Posterior edge), swelling Details: laterally and anteriorly, normal ROM (With pain) and ecchymosis anterolateral ; no warmth, no abrasions, no lacerations, no crepitus and achilles tendon exam normal and foot Details: normal capillary refill, tenderness Location: of the plantar foot and of the calcaneus, toes with normal ROM and vascular exam Details: normal capillary refill; no unusual warmth Assessment & Plan Assessment & Plan (1) Ankle pain, left: Code(s): M25.572 - Pain in left ankle and joints of left foot Qualifiers: Chronicity: acute Qualified Code(s): M25.572 - Pain in left ankle and joints of left foot Plan: As per out of what ankle rules, pain in the posterior tip of the medial malleolus requires an x-ray of the ankle so an x-ray was ordered. Also Prakash wrapped the ankle, recommended patient use ice and Aleve for pain. Did offer patient and crutches but she declined (2) Fall: Code(s): W19.XXXA - Unspecified fall, initial encounter Qualifiers: Encounter type: initial encounter Qualified Code(s): W19.XXXA - Unspecified fall, initial encounter Plan: see above Plan see above Orders: Orders XR ankle LT min 3V Today M25.572 - Pain in left ankle and joints of left foot, W19.XXXA - Unspecified fall, initial encounter Coding Level of Care Code Est Pt Level 4 (87802) Diagnoses Acute left ankle pain M25.572 Chronicity: acute Fall, initial encounter W19.XXXA Encounter type: initial encounter
== END 2023-11-08 12:10 | disposition home or self-care (01) ==
PROVIDERS: PCP Nurse Practitioner Family; Visit Provider Physician Assistant
DX: M25.572 Pain in left ankle and joints of left foot (principal); W19.XXXA Unspecified fall, initial encounter

== ENCOUNTER → 2023-11-08 11:09 | Outpatient (BNVA) | payer OTHER, SELFPAY | PROVIDERS: PCP Nurse Practitioner Family ==

== ENCOUNTER 2023-11-08 11:37 | Outpatient (REF) | payer OTHER, SELFPAY ==
--- NOTE | ~2023-11-08 | XR_ITS ---
EXAMINATION: XR ANKLE, LEFT CLINICAL INFORMATION: Left ankle pain COMPARISON: None available. TECHNIQUE: AP, lateral, and mortise views of the left ankle. FINDINGS: Linear calcification at the dorsal aspect of the distal talus may represent a small avulsion by the talonavicular ligament. Otherwise, no fracture or malalignment. The ankle mortise is preserved. There is a small heel spur. XR/XR ankle LT min 3V IMPRESSION: Linear calcification at the dorsal aspect of the distal talus may represent a small avulsion by the talonavicular ligament. Otherwise, no fracture or malalignment. Electronically signed by: Nimesh Bal MD 11/08/2023 03:03 PM EDT
== END 2023-11-08 11:38 | disposition home or self-care (01) ==
LOC: HO.HMGCX 11:37
PROVIDERS: PCP Nurse Practitioner Family; Visit Provider Physician Assistant
DX: M25.572 Pain in left ankle and joints of left foot (principal); W19.XXXA Unspecified fall, initial encounter
CPT/HCPCS: 73610; 99212

== ENCOUNTER 2023-11-21 09:48 | Outpatient (REF) | payer OTHER, SELFPAY ==
[2023-11-21 13:53] LABS: TSH reflex Free T4 3.69 uIU/mL (0.32-4.0)
== END 2023-11-21 09:49 | disposition home or self-care (01) ==
LOC: HO.HMGCLDS 09:48
PROVIDERS: PCP Nurse Practitioner Family; Visit Provider Nurse Practitioner Family
DX: R79.89 Other specified abnormal findings of blood chemistry (principal)
CPT/HCPCS: 36415; 84443

== ENCOUNTER 2023-11-28 13:56 | Outpatient (REF) | payer OTHER, SELFPAY ==
[2023-11-28 17:21] LABS: Influenza A PCR NEGATIVE (Negative); Influenza B PCR NEGATIVE (Negative); Resp Syncy Virus RNA Qual PCR NEGATIVE (Negative); SARS COV2 PCR INHOUSE NEGATIVE (Negative)
== END 2023-11-28 13:57 | disposition home or self-care (01) ==
LOC: HO.LAB 13:56
PROVIDERS: PCP Nurse Practitioner Family; Visit Provider Physician Assistant
DX: J06.9 Acute upper respiratory infection, unspecified (principal)
CPT/HCPCS: 0241U; 99212

== ENCOUNTER 2023-11-28 13:56 | Outpatient (AMB) | payer OTHER, SELFPAY ==
--- NOTE | 2023-11-28 14:01 | AM.OFFWIN_ITS ---
Intake Vital Signs 11/28/23 14:02 Height 5 ft 5 in Weight 169 lb BMI 28.1 BP 126/80 Blood Pressure Location Lt brachial Position Sitting Pulse 74 Pulse Source Pulse Oximeter Temp 98.7 F Temp Source Oral Pulse Oximetry (%) 98 Oxygen Delivery Method Room Air Intake Visit Reasons: EP coughing, congested, sneezing Intake Note: Patient here for congestion, cough and sneezing which started today. she states she spent 3 days with her grandaughter that just tested positive today. Patient Tobacco Use Status: Current everyday Tobacco user Allergies codeine [CODEINE] Allergy (Severe, Verified 11/28/23 14:03) ITCHY, itch aspirin Allergy (Unknown, Verified 11/28/23 14:03) upset stomach Do you need a note to return to daycare/school/sports/work: No HPI HPI Comments History of Present Illness Details She presents to office with concern covid close contact + COVID. Exposure was 3 days ago No tests at home taken Onset symptoms last night + fatigue, sneeze, cough No fever or chills + body aches and headache Tylenol without complete relief PFSH Medical History (Updated 11/28/23 @ 14:22 by Bree Wolfe PA-C) Hypertension High cholesterol Nicotine dependence, cigarettes, uncomplicated Surgical History (Updated 10/18/23 @ 08:07 by BI Corado) H/O shoulder surgery Status post cryoablation History of lumpectomy of left breast History of tonsillectomy Family History Father Heart failure CVD (cardiovascular disease) S/P triple vessel bypass Mother Lung cancer Social History (Updated 10/27/23 @ 10:43 by Poornima Lacey PA-C) Housing: Apartment Alcohol intake: current Alcohol intake frequency: a few times a week Patient Tobacco Use Status: Current everyday Tobacco user Cigarettes Per Day: 15 Years Smoked: (onset 11yo, x 47yrs, max 2ppd, now 1/2-1ppd - 35pyh) e-Cigarette/Vaping Use: Never Used Second Hand Smoke Exposure: No service: No Current occupational status: disabled Sexual orientation: Straight/Heterosexual Gender identity: Female Cognitive needs: No Hearing needs: No Vision needs: No Review of Systems Const Reports body aches, Denies chills, Reports fatigue, Denies fever(s) and Reports headache(s) ENT Denies otalgia, Reports headache(s), Reports nasal congestion and Reports nasal discharge Card Denies chest pain, Denies syncope and Denies dyspnea Resp Reports cough and Denies dyspnea GI Denies vomiting Neuro Denies syncope and Reports headache(s) Endo Reports fatigue Physical Exam Vital Signs: Last Vital Signs Temp 98.7 F 11/28/23 14:02 Pulse 74 11/28/23 14:02 BP 126/80 11/28/23 14:02 Pulse Ox 98 11/28/23 14:02 Oxygen Delivery Method Room Air 11/28/23 14:02 BMI result Body Mass Index 28.1 General: Non-toxic, NAD. Speaking full sentences. Skin: Warm dry throughout Eye: EOMI HENT: Airway patent. Uvula midline. No pharyngeal erythema or edema. 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 Bilateral canals clear. TM non-erythematous, non-bulging. No TM perforation or hemotympanum noted. Respiratory: CTA bilaterally. No wheezes, rales or rhonchi Cardiac: RRR. No murmur MSK: Full ROM extremities. Neurology: A/O. No aphasia or facial droop. Gait without abnormality Psych: Good mood and affect Assessment & Plan Assessment & Plan (1) Upper respiratory infection: Code(s): J06.9 - Acute upper respiratory infection, unspecified Qualifiers: URI type: unspecified viral URI Qualified Code(s): J06.9 - Acute upper respiratory infection, unspecified Plan: Patient seen and evaluated. Most likely covid Lungs CTA swab pending She will start isolation and need note if positive; onset symptoms last night Patient gave verbal understanding and had no additional questions or concerns at time of discharge All questions answered Orders: Orders SARS-CoV2/FLU/RSV Today J06.9 - Acute upper respiratory infection, unspecified Coding Level of Care Code Est Pt Level 3 (91239) Diagnoses Viral upper respiratory tract infection J06.9 URI type: unspecified viral URI
[2023-11-28 14:02] VITALS: BP 126/80; PULSE 74; TEMP 37.1; O2SAT 98; BMI 28.1
== END 2023-11-28 14:17 | disposition home or self-care (01) ==
PROVIDERS: PCP Nurse Practitioner Family; Visit Provider Physician Assistant
DX: J06.9 Acute upper respiratory infection, unspecified (principal)

== ENCOUNTER 2023-12-19 08:49 | Outpatient (AMB) | payer OTHER, SELFPAY ==
--- NOTE | 2023-12-19 09:01 | AM.OFFVISNUR ---
Intake Visit Reasons: Flu vaccine Intake Note: Pt arrived for annual flu vaccine Allergies codeine [CODEINE] Allergy (Severe, Verified 11/28/23 14:03) ITCHY, itch aspirin Allergy (Unknown, Verified 11/28/23 14:03) upset stomach Office Procedures Flu Questionnaire Does the patient have a severe egg allergy?: No Does the patient have severe life threatening allergies?: No Does the patient have a fever or illness today?: No Has the patient ever had Guillain-[place] Syndrome?: No Has the patient ever had any past reaction to a flu shot?: No Assessment & Plan Assessment & Plan Orders: Orders Influenza [id number] Immunization Today Z23 - Encounter for immunization Medications: New Fluarix Triv [id number] (PF) (flu vacc [id number] 6mos up(PF)) 0.5 mL IM ONCE 0.5 mL 0RF NS Z23 - Encounter for immunization
== END 2023-12-19 09:58 | disposition home or self-care (01) ==
LOC: HO.HMCC 08:49
PROVIDERS: PCP Nurse Practitioner Family; Visit Provider Nurse Practitioner Family
DX: Z23 Encounter for immunization (principal)

== ENCOUNTER → 2023-12-19 08:49 | Outpatient (BNVA) | payer OTHER, SELFPAY | PROVIDERS: PCP Nurse Practitioner Family; Visit Provider Nurse Practitioner Family | DX: Z23 Encounter for immunization (principal) | CPT/HCPCS: 90471; 90656 ==

== ENCOUNTER 2024-01-23 15:57 | Outpatient (AMB) | payer OTHER, SELFPAY ==
--- NOTE | 2024-01-23 16:10 | AM.OFFWIN_ITS ---
Intake Vital Signs 01/23/24 16:11 Height 5 ft 5 in Weight 174 lb 4 oz BMI 29.0 BP 112/72 Blood Pressure Location Lt brachial Position Sitting Pulse 98 Pulse Source Pulse Oximeter Temp 97.9 F Temp Source Oral Pulse Oximetry (%) 93 Oxygen Delivery Method Room Air Intake Visit Reasons: EP migraine, nausea Intake Note: Patient here for migraine that has been present for 3 days straight Patient Tobacco Use Status: Current everyday Tobacco user Allergies codeine [CODEINE] Allergy (Severe, Verified 11/28/23 14:03) ITCHY, itch aspirin Allergy (Unknown, Verified 11/28/23 14:03) upset stomach Do you need a note to return to daycare/school/sports/work: No HPI HPI Comments History of Present Illness Details This is a 58-year-old female with a past medical history of hypothyroidism, hypertension and tobacco use presenting for evaluation of a frontal headache that has been constant for the past 3-4 days. Patient states that her thyroid medication was recently changed and ?it just does not agree with me?. Patient has not taken any medication for treatment of her headaches. ?I do not like pills. I will not take any more pills. ? Patient denies having any visual changes, neck pain, fevers, chills, nausea, vomiting or syncope. [facility] Medical History (Updated 01/23/24 @ 16:50 by Ivet Muñoz PA-C) Hypertension High cholesterol Nicotine dependence, cigarettes, uncomplicated Surgical History (Updated 10/18/23 @ 08:07 by BI Corado) H/O shoulder surgery Status post cryoablation History of lumpectomy of left breast History of tonsillectomy Family History Father Heart failure CVD (cardiovascular disease) S/P triple vessel bypass Mother Lung cancer Social History (Updated 10/27/23 @ 10:43 by Poornima Lacey PA-C) Housing: Apartment Alcohol intake: current Alcohol intake frequency: a few times a week Patient Tobacco Use Status: Current everyday Tobacco user Cigarettes Per Day: 15 Years Smoked: (onset 11yo, x 47yrs, max 2ppd, now 1/2-1ppd - 35pyh) e-Cigarette/Vaping Use: Never Used Second Hand Smoke Exposure: No service: No Current occupational status: disabled Sexual orientation: Straight/Heterosexual Gender identity: Female Cognitive needs: No Hearing needs: No Vision needs: No Review of Systems Neuro Denies Abnormal speech present Physical Exam Const General: cooperative, comfortable, no acute distress, well developed, alert, awake and Physically active; No acute distress or lethargic Nutritional Appearance: average body habitus Orientation/consciousness: patient oriented x3 and No lethargic Limitations: no limitations HEENT Head: Yes normal to inspection, Yes normocephalic, No raccoon eyes and No scalp tenderness Ears: hearing grossly normal bilaterally, external ears normal, TM's normal bilaterally and EAC's normal General nose exam: Normal external nose present Face and sinus: Yes normal facial exam and Yes sinuses nontender Mouth: Normal oral and palatal mucosa present Eyes General: appearance normal, both eyes and all related structures Visual Hu: normal visual hu by confrontation Alignment and Position: alignment normal Periorbital: periorbital findings normal Eyelids: Yes eyelids normal Conjunctivae: conjunctivae normal Sclerae: sclerae normal Corneas: corneas normal Pupils: Equal, round and reactive pupils present and Pupils normal by confrontation EOM: EOMs intact bilaterally Direct Ophthalmoscopy: normal light reflex and no photophobia Neck Neck: Yes normal visual inspection and Yes no lymphadenopathy Back/Spine/Pelvis Cervical Spine: normal cervical lordosis, cervical ROM normal, No cervical muscular tenderness, No pain with cervical ROM, No cervical spasm, No Cervical spine tenderness and No cervical ROM abnormal Skin General skin exam: no rashes or lesions noted Neuro General: patient oriented x3 and CN's II-XI intact bilaterally Cranial nerves: Yes Equal, round and reactive pupils present, Yes Bilaterally intact EOM present and Yes Nystagmus not present Cognition (Neuro): normal cognition Speech: No Abnormal speech present Gait exam (Neuro): Normal gait present Psych Appearance: grossly normal Mental Status: mental status grossly normal Affect: normal affect Attitude: cooperative Insight: Fair insight present (Psych) Judgement: Fair judgement present (Psych) Assessment & Plan Assessment & Plan (1) Acute headache: Comment: Patient is neurologically intact and expresses her concerns about taking any OTC or prescribed medications. States she is well hydrated and eats irregularly. Code(s): R51.9 - Headache, unspecified Qualifiers: Headache type: unspecified Intractability: not intractable Qualified Code(s): R51.9 - Headache, unspecified Plan: Patient agrees to take 500 mg of Tylenol every 8 hours for the next 24 hours, stay very well hydrated and attempt to snack throughout the day. She will f ollow up with her primary care provider as needed if her symptoms do not resolve. Coding Level of Care Code Est Pt Level 3 (55075) Diagnoses Acute nonintractable headache, unspecified headache type R51.9 Headache type: unspecified Intractability: not intractable Time Spent (min) 20
[2024-01-23 16:11] VITALS: BP 112/72; PULSE 98; TEMP 36.6; O2SAT 93; BMI 29.0
== END 2024-01-23 16:47 | disposition home or self-care (01) ==
PROVIDERS: PCP Nurse Practitioner Family; Visit Provider Physician Assistant
DX: R51.9 Headache, unspecified (principal)

== ENCOUNTER → 2024-01-23 15:57 | Outpatient (BNVA) | payer OTHER, SELFPAY | PROVIDERS: PCP Nurse Practitioner Family; Visit Provider Physician Assistant | DX: R51.9 Headache, unspecified (principal) | CPT/HCPCS: 99212 ==

== ENCOUNTER 2024-02-23 07:45 | Outpatient (REF) | payer OTHER, SELFPAY ==
[2024-02-23 10:40] LABS: TSH reflex Free T4 3.57 uIU/mL (0.32-4.0)
== END 2024-02-23 07:46 | disposition home or self-care (01) ==
LOC: HO.HMGCLDS 07:45
PROVIDERS: PCP Nurse Practitioner Family; Visit Provider Nurse Practitioner Family
DX: R79.89 Other specified abnormal findings of blood chemistry (principal)
CPT/HCPCS: 36415; 84443

== ENCOUNTER 2024-04-03 14:46 | Outpatient (AMB) | payer OTHER, SELFPAY ==
[2024-04-03 15:02] VITALS: BP 124/78; PULSE 90; O2SAT 95
--- NOTE | 2024-04-03 15:02 | MHC.OFFWIV ---
Intake Vital Signs 04/03/24 15:02 Weight 174 lb BP 124/78 Blood Pressure Location Rt brachial Position Sitting Pulse 90 Pulse Source Pulse Oximeter Pulse Oximetry (%) 95 Oxygen Delivery Method Room Air Intake Visit Reasons: EP lump under arm Intake Note: Patient here for Patient Tobacco Use Status: Current everyday Tobacco user Allergies codeine [CODEINE] Allergy (Severe, Verified 04/03/24 15:03) ITCHY, itch aspirin Allergy (Unknown, Verified 04/03/24 15:03) upset stomach Do you need a note to return to daycare/school/sports/work: No HPI HPI Comments History of Present Illness Details History of Present Illness The patient is a 58-year-old female presenting with an axillary lump and rash. She noticed a painful lump in the right armpit about six weeks ago, associated with a very itchy rash. Admits to night sweats but she does have them from menopause, denies any recent fevers. No unintended weight loss.. She underwent regular mammographic screenings, with the last one being negative in June 2023. Personal health maintenance includes self-examinations, as her menstrual cycle ceased.. No family history of breast cancer is present. Lifestyle modifications have been made, such as ceasing deodorant use and trying bacitracin for the rash. Physical Exam General: Cooperative, healthy appearing, comfortable, no acute distress and well developed Orientation: Patient oriented x3 Limitations: No limitations Head: Normal to inspection Ears: Hearing grossly normal bilaterally Nose: Normal external nose present Face and sinus: Normal facial exam Eyes: Appearance normal, both eyes and all related structures Neck: Normal visual inspection and Yes full ROM Respiratory: Normal respiratory effort and able to speak in complete sentences. Skin: Rash noted (see pic below) in the right axilla, lump is approx 1cm above the superior aspect of the rash. 3 cm x 2 cm lump TTP, firm Neuro: Patient oriented x3 Extremities: Normal to inspection [facility] Medical History (Updated 04/03/24 @ 15:19 by Tyesha Fitzpatrick PA-C) Hypertension High cholesterol Nicotine dependence, cigarettes, uncomplicated Surgical History (Updated 10/18/23 @ 08:07 by BI Corado) H/O shoulder surgery Status post cryoablation History of lumpectomy of left breast History of tonsillectomy Family History Father Heart failure CVD (cardiovascular disease) S/P triple vessel bypass Mother Lung cancer Social History (Updated 10/27/23 @ 10:43 by Poornima Lacey PA-C) Housing: Apartment Alcohol intake: current Alcohol intake frequency: a few times a week Patient Tobacco Use Status: Current everyday Tobacco user Cigarettes Per Day: 15 Years Smoked: (onset 11yo, x 47yrs, max 2ppd, now 1/2-1ppd - 35pyh) e-Cigarette/Vaping Use: Never Used Second Hand Smoke Exposure: No service: No Current occupational status: disabled Sexual orientation: Straight/Heterosexual Gender identity: Female Cognitive needs: No Hearing needs: No Vision needs: No Review of Systems Const All systems reviewed & are unremarkable except as noted in HPI and below Physical Exam Vital Signs: Last Vital Signs Pulse 90 04/03/24 15:02 BP 124/78 04/03/24 15:02 Pulse Ox 95 04/03/24 15:02 Oxygen Delivery Method Room Air 04/03/24 15:02 Assessment & Plan Assessment & Plan (1) Lump of axilla: Code(s): R22.30 - Localized swelling, mass and lump, unspecified upper limb Qualifiers: Laterality: right Qualified Code(s): R22.31 - Localized swelling, mass and lump, right upper limb Plan: The primary concern is the right axillary lump associated with a pruritic rash, not a peau d'orange rash. A topical steroid cream has been recommended for the rash, given the inflammation and itching, with subsequent consideration for antifungal treatment if steroid doesn't help. Monitoring of the lump for changes is emphasized. Will send a note the covering PCP as her PCP is on vacation this week for [place] to evaluate the lump further. Patient was informed and verbally consented to the use of an ambient scribe for clinic note documentation during this visit. Coding Level of Care Code Est Pt Level 3 (52390) Diagnoses Mass of right axilla R22.31 Laterality: right
== END 2024-04-03 15:46 | disposition home or self-care (01) ==
PROVIDERS: PCP Nurse Practitioner Family; Visit Provider Physician Assistant
DX: R22.31 Localized swelling, mass and lump, right upper limb (principal)

== ENCOUNTER → 2024-04-03 14:46 | Outpatient (BNVA) | payer OTHER, SELFPAY | PROVIDERS: PCP Nurse Practitioner Family | DX: R22.31 Localized swelling, mass and lump, right upper limb (principal) | CPT/HCPCS: 99212 ==

== ENCOUNTER 2024-04-19 10:11 | Outpatient (REF) | payer OTHER, SELFPAY ==
--- NOTE | ~2024-04-19 | US_ITS ---
CLINICAL HISTORY: R22.31 - Localized swelling, mass and lump, right upper limb US extremity nonvascular Comparison: None Findings: Sonographic evaluation area of clinical concern right axillary area demonstrates no discrete solid or cystic mass, shadowing or calcifications. The contralateral axilla was scanned for comparative purposes. Impression: No sonographic correlate to the area of clinical concern right axillary region. This document has been electronically signed by: Oliver Campos MD on 04/19/2024 12:31:44
== END 2024-04-19 10:12 | disposition home or self-care (01) ==
LOC: HO.HMGCX 10:11
PROVIDERS: PCP Nurse Practitioner Family; Visit Provider Internal Medicine
DX: R22.31 Localized swelling, mass and lump, right upper limb (principal)
CPT/HCPCS: 76882

== ENCOUNTER → 2024-04-19 10:14 | Outpatient (BNV) | payer OTHER, SELFPAY | PROVIDERS: PCP Nurse Practitioner Family; Visit Provider Radiology Diagnostic Radiology | DX: R22.31 Localized swelling, mass and lump, right upper limb (principal) | CPT/HCPCS: 76882 ==

== ENCOUNTER 2024-05-03 07:12 | Outpatient (REF) | payer OTHER, SELFPAY ==
[2024-05-03 10:53] LABS: Alanine Aminotransferase 20 U/L (0-31); Albumin Level 4.1 g/dL (3.5-5.0); Alkaline Phosphatase 67 U/L (39-117); Anion Gap 11 (12-20); Aspartate Amino Transferase 20 U/L (5-31); Bilirubin Total 0.5 mg/dL (0.0-1.0); Blood Urea Nitrogen 17 mg/dL (9-16); Calcium 8.8 mg/dL (8.4-10.2); Carbon Dioxide 24 mmol/L (22-29); Chloride 107 mmol/L (96-108); Estimated Glomerular Filt Rate > 60; Glucose Random 89 mg/dL (60-115); Potassium 4.2 mmol/L (3.3-5.1); Sodium 138 mmol/L (135-145); Total Protein 7.2 g/dL (6.5-8.0)
[2024-05-03 11:11] LABS: TSH reflex Free T4 3.62 uIU/mL (0.32-4.0)
== END 2024-05-03 07:13 | disposition home or self-care (01) ==
LOC: HO.HMGCLDS 07:12
PROVIDERS: PCP Nurse Practitioner Family; Visit Provider Nurse Practitioner Family
DX: R79.89 Other specified abnormal findings of blood chemistry (principal)
CPT/HCPCS: 36415; 80053; 84443

== ENCOUNTER 2024-06-05 09:15 | Outpatient (AMB) | payer OTHER, SELFPAY ==
--- NOTE | 2024-06-05 09:35 | MHC.OFFWIV ---
Intake Vital Signs 06/05/24 09:49 Weight 174 lb BP 122/80 Blood Pressure Location Lt brachial Position Sitting Pulse 75 Pulse Source Pulse Oximeter Temp 98.3 F Temp Source Oral Pulse Oximetry (%) 97 Oxygen Delivery Method Room Air Intake Visit Reasons: EP-?uti Intake Note: Patient here for lower back pain, pain on urination that has been present for about 2 days. Patient Tobacco Use Status: Current everyday Tobacco user Allergies codeine [CODEINE] Allergy (Severe, Verified 06/05/24 09:48) ITCHY, itch aspirin Allergy (Unknown, Verified 06/05/24 09:48) upset stomach Do you need a note to return to daycare/school/sports/work: No HPI HPI Comments History of Present Illness Details She presents to office to check kidney Symptoms ongoing x a few days Hx of UTIs before and kidney infections in the past She has ache in R lower back No trauma or injury recently Pain level is intermittent now 6/10 No worsening or improving factors She has tried no medicine for it She denies fever or chills She said pain slightly wraps around side No sharp abdominal pain No CP or SOB 2 days of urine frequency Slight dysuria + urgency as well No diarrhea or constipation PFSH Medical History (Updated 06/05/24 @ 10:18 by Bree Wolfe PA-C) Hypertension High cholesterol Nicotine dependence, cigarettes, uncomplicated Surgical History (Updated 10/18/23 @ 08:07 by BI Corado) H/O shoulder surgery Status post cryoablation History of lumpectomy of left breast History of tonsillectomy Family History Father Heart failure CVD (cardiovascular disease) S/P triple vessel bypass Mother Lung cancer Social History (Updated 10/27/23 @ 10:43 by Poornima Lacey PA-C) Housing: Apartment Alcohol intake: current Alcohol intake frequency: a few times a week Patient Tobacco Use Status: Current everyday Tobacco user Cigarettes Per Day: 15 Years Smoked: (onset 11yo, x 47yrs, max 2ppd, now 1/2-1ppd - 35pyh) e-Cigarette/Vaping Use: Never Used Second Hand Smoke Exposure: No service: No Current occupational status: disabled Sexual orientation: Straight/Heterosexual Gender identity: Female Cognitive needs: No Hearing needs: No Vision needs: No Review of Systems Const Denies chills, Denies fatigue and Denies fever(s) Card Denies chest pain and Denies dyspnea Resp Denies cough and Denies dyspnea GI Denies abdominal pain, Denies constipation, Denies diarrhea, Denies nausea and Denies vomiting Denies difficulty voiding, Reports dysuria, Reports flank pain (R side), Denies urinary incontinence, Reports urinary hesitancy and Reports urinary urgency Musc Reports back pain Skin/Breast Denies rash Endo Denies fatigue Physical Exam Vital Signs: Last Vital Signs Temp 98.3 F 06/05/24 09:49 Pulse 75 06/05/24 09:49 BP 122/80 06/05/24 09:49 Pulse Ox 97 06/05/24 09:49 Oxygen Delivery Method Room Air 06/05/24 09:49 General: Non-toxic, NAD. Speaking full sentences. Skin: Warm dry throughout. No posterior or flank ecchymosis or vesicular lesions Eye: EOMI Respiratory: CTA bilaterally. No wheezes, rales or rhonchi Cardiac: RRR. No murmur Abdominal: No abdominal distention. BS present x 4. No rebound or guarding. No CVAT MSK: No midline spinal tendern. + ttp R lumbar paravertebral muscles. Neurology: Alert. No aphasia or facial droop. Gait without abnormality Psych: Good mood and affect Assessment & Plan Assessment & Plan (1) Urinary frequency: Code(s): R35.0 - Frequency of micturition Plan: Urine + 1+ blood She has hx of trace blood in 2017 and 2020. Pt denies hematuria noted. Will monitor with PCP Suleiman compress and increased hydration Urine culture sent Warning signs discussed with pt on when to go to ER She gave verbal understanding No additional questions at time of d/c (2) Back pain: Code(s): M54.9 - Dorsalgia, unspecified Qualifiers: Back pain location: low back pain Chronicity: acute Back pain laterality: right Sciatica presence: without sciatica Qualified Code(s): M54.50 - Low back pain, unspecified Plan: see above Orders: Orders Urine Culture Today M54.9 - Dorsalgia, unspecified, R35.0 - Frequency of micturition Coding Level of Care Code Est Pt Level 3 (39927) Diagnoses Urinary frequency R35.0 Acute right-sided low back pain without sciatica M54.50 Back pain location: low back pain Chronicity: acute Back pain laterality: right Sciatica presence: without sciatica
[2024-06-05 09:49] VITALS: BP 122/80; PULSE 75; TEMP 36.8; O2SAT 97
== END 2024-06-05 10:27 | disposition home or self-care (01) ==
PROVIDERS: PCP Nurse Practitioner Family; Visit Provider Physician Assistant
DX: R35.0 Frequency of micturition (principal); M54.50 Low back pain, unspecified

== ENCOUNTER 2024-06-05 09:15 | Outpatient (REF) | payer OTHER, SELFPAY | END 2024-06-05 09:16 | disposition home or self-care (01) | LOC: HO.LNP 09:15 | PROVIDERS: PCP Nurse Practitioner Family; Visit Provider Physician Assistant | DX: R35.0 Frequency of micturition (principal); M54.9 Dorsalgia, unspecified; M54.50 Low back pain, unspecified | CPT/HCPCS: 87086; 99212 ==

== ENCOUNTER 2024-07-03 08:04 | Outpatient (REF) | payer OTHER, SELFPAY | END 2024-07-03 08:05 | disposition home or self-care (01) | LOC: HO.MAMMO 08:04 | PROVIDERS: PCP Nurse Practitioner Family; Visit Provider Nurse Practitioner Family | DX: Z12.31 Encounter for screening mammogram for malignant neoplasm of breast (principal) | CPT/HCPCS: 77063; 77067 ==

== ENCOUNTER → 2024-07-03 08:30 | Outpatient (BNV) | payer OTHER, SELFPAY | PROVIDERS: PCP Nurse Practitioner Family; Visit Provider Internal Medicine | DX: Z12.31 Encounter for screening mammogram for malignant neoplasm of breast (principal) | CPT/HCPCS: 77063; 77067 ==

== ENCOUNTER 2024-07-10 09:50 | Outpatient (AMB) | payer OTHER, SELFPAY ==
--- NOTE | 2024-07-10 09:58 | AM.OFFWIN_ITS ---
Intake Vital Signs 07/10/24 10:06 BMI Reason not done Patient refused/unable BP 110/70 Blood Pressure Location Lt brachial Position Sitting Pulse 68 Pulse Source Pulse Oximeter Pulse Oximetry (%) 93 Oxygen Delivery Method Room Air Intake Visit Reasons: EP RT heel pain/swelling sore Intake Note: Patient here for right heel pain that radiates up the leg/numbness that has been present for about a week or so. Patient Tobacco Use Status: Current everyday Tobacco user Allergies codeine [CODEINE] Allergy (Severe, Verified 07/10/24 10:05) ITCHY, itch aspirin Allergy (Unknown, Verified 07/10/24 10:05) upset stomach Medication List - Last Reconciled 07/10/24 by Merrill Mittal MD No Known Home Meds Do you need a note to return to daycare/school/sports/work: No HPI EP RT heel pain/swelling sore HPI Details History - The patient is a 58-year-old female pr esenting with right foot and leg numbness and pain. - The patient reports that the symptoms began approximately two weeks ago. - Initially, the pain started in the rig ht heel and then extended upward to the knee. - The patient describes the pain as a bu rning sensation that intensifies when stepping on it. - The patient denies any previous histor y of similar episodes. - The patient is frequently on her feet as she babysits her grandchildren, which involves walking throughout the day. - There were no symptoms or similar issu es prior to two weeks ago. - The toe movement does not aggravate th e condition. Problem List - Numbness in right heel and leg - Pain in right heel - calf pain right Patient Instructions - stat ultrasound right leg to be done today. - X R heal right Review of Systems - General: No fever no chills - Neurological: No headaches no dizziness - Ear nose throat: No sore throat no hearing difficulty no ear pain - Cardiovascular: No syncope, no chest pain, no palpitations - Gastrointestinal: No nausea vomiting or diarrhea Physical Exam General: No acute distress HEENT: No acute findings Neck: Supple Respiratory system: Able to talk in full sentences Extremities: Pain all over right leg up to thigh with palpation, pain with pressure over heel, dorsalis pedis pulse 2 +, foot skin color pink, able to move her toes without any pain, no pain over ankle, sensory intact 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 awake oriented x3 Skin: Normal turgor PFSH Medical History Hypertension High cholesterol Nicotine dependence, cigarettes, uncomplicated Surgical History H/O shoulder surgery Status post cryoablation History of lumpectomy of left breast History of tonsillectomy Family History Father Heart failure CVD (cardiovascular disease) S/P triple vessel bypass Mother Lung cancer Social History Housing: Apartment Alcohol intake: current Alcohol intake frequency: a few times a week Patient Tobacco Use Status: Current everyday Tobacco user Cigarettes Per Day: 15 Years Smoked: (onset 11yo, x 47yrs, max 2ppd, now 1/2-1ppd - 35pyh) e-Cigarette/Vaping Use: Never Used Second Hand Smoke Exposure: No service: No Current occupational status: disabled Sexual orientation: Straight/Heterosexual Gender identity: Female Cognitive needs: No Hearing needs: No Vision needs: No Physical Exam Vital Signs: Last Vital Signs Pulse 68 07/10/24 10:06 BP 110/70 07/10/24 10:06 Pulse Ox 93 07/10/24 10:06 Oxygen Delivery Method Room Air 07/10/24 10:06 Assessment & Plan Assessment & Plan (1) Right calf pain: Code(s): M79.661 - Pain in right lower leg (2) Pain of right heel: Code(s): M79.671 - Pain in right foot (3) Leg pain, right: Code(s): M79.604 - Pain in right leg (4) Paresthesia of right leg: Code(s): R20.2 - Paresthesia of skin Plan History - The patient is a 58-year-old female presenting with right foot and leg numbness and pain. - The patient reports that the symptoms began approximately two weeks ago. - Initially, the pain started in the right heel and then extended upward to the knee. - The patient describes the pain as a burning sensation that intensifies when stepping on it. - The patient denies any previous history of similar episodes. - The patient is frequently on her feet as she babysits her grandchildren, which involves walking throughout the day. - There were no symptoms or similar issues prior to two weeks ago. - The toe movement does not aggravate the condition. Problem List - Numbness in right heel and leg - Pain in right heel - calf pain right Patient Instructions - stat ultrasound right leg to be done today. - X R heal right Ultrasound of right leg showed no DVT Patient was notified Orders: Orders US venous duplex LE RT Today M79.661 - Pain in right lower leg XR foot RT 2V Today M79.671 - Pain in right foot Coding Level of Care Code Est Pt Level 4 (33875) Diagnoses Right calf pain M79.661 Pain of right heel M79.671 Leg pain, right M79.604 Paresthesia of right leg R20.2
[2024-07-10 10:06] VITALS: BP 110/70; PULSE 68; O2SAT 93
== END 2024-07-10 10:45 | disposition home or self-care (01) ==
PROVIDERS: PCP Nurse Practitioner Family; Visit Provider Internal Medicine
DX: M79.661 Pain in right lower leg (principal); M79.671 Pain in right foot; M79.604 Pain in right leg; R20.2 Paresthesia of skin

== ENCOUNTER → 2024-07-10 09:50 | Outpatient (BNVA) | payer OTHER, SELFPAY | PROVIDERS: PCP Nurse Practitioner Family; Visit Provider Internal Medicine | DX: Z13.89 Encounter for screening for other disorder (principal) ==

== ENCOUNTER 2024-07-10 13:20 | Outpatient (REF) | payer OTHER, SELFPAY ==
--- NOTE | ~2024-07-10 | US_ITS ---
EXAMINATION: US TRIPLEX LOWER EXTREMITY, RIGHT CLINICAL INFORMATION: Right leg pain. COMPARISON: None available. TECHNIQUE: Color-flow triplex imaging with spectral analysis and compression Doppler were performed on the right lower extremity. FINDINGS: Respiratory variation, normal compression and augmented flow are noted throughout the right lower extremity. The visualized common femoral vein, superficial femoral vein, profunda femoral vein, popliteal vein and midcalf peroneal and posterior tibial venous segments show no evidence of deep venous thrombosis. There is no Love's cyst. There are reactive appearing lymph nodes in the right groin. US/US venous duplex LE RT IMPRESSION: No evidence of deep venous thrombosis involving the right lower extremity. Electronically signed by: Jf Flower MD 07/10/2024 01:49 PM EDT
== END 2024-07-10 13:21 | disposition home or self-care (01) ==
LOC: HO.HMGCX 13:20
PROVIDERS: PCP Nurse Practitioner Family; Visit Provider Internal Medicine
DX: M79.661 Pain in right lower leg (principal); M79.671 Pain in right foot; M79.604 Pain in right leg; R20.2 Paresthesia of skin
CPT/HCPCS: 93971; 99212

== ENCOUNTER → 2024-07-10 13:22 | Outpatient (BNV) | payer OTHER, SELFPAY | PROVIDERS: PCP Nurse Practitioner Family; Visit Provider Radiology Diagnostic Radiology | DX: M79.661 Pain in right lower leg (principal) | CPT/HCPCS: 93971 ==

== ENCOUNTER 2024-08-08 13:39 | Outpatient (AMB) | payer OTHER, SELFPAY ==
[2024-08-08 14:06] VITALS: BP 108/80; PULSE 90; TEMP 36.9; O2SAT 96
--- NOTE | 2024-08-08 14:06 | AM.OFFWIN_ITS ---
Intake Vital Signs 08/08/24 14:06 08/08/24 14:12 Weight 165 lb BP 108/80 111/64 Blood Pressure Location Lt brachial Lt brachial Position Sitting Sitting Respiration 14 Pulse 90 96 Pulse Source Pulse Oximeter Pulse Oximeter Temp 98.5 F Pulse Oximetry (%) 96 97 Oxygen Delivery Method Room Air Room Air Intake Visit Reasons: EP numbness on RT leg & weakness on RT arm Intake Note: Pt came into the [place] [facility] c/o right leg and arm numbness since yesterday. Pt stated that she did alot of house/yard work yesterday even lifted a couple furniture. Pt stated hx of DJD to cervical spine and that she had right shoulder surgery approximately 7 years ago. Pt stated (my right arm has no strength). 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 Reports that she did a lot of house and Yard work yesterday and feels could have triggered the pain. Hx of DJD to cervical spine - had right shoulder surgery approximately 7 years ago. C/o Right sided arm weakness and unable to angle bender/close fist. [facility] Medical History (Updated 08/08/24 @ 14:40 by Meagan Shah NP) Cervical myelopathy Hypertension High cholesterol Nicotine dependence, cigarettes, uncomplicated Surgical History H/O shoulder surgery Status post cryoablation History of lumpectomy of left breast History of tonsillectomy Family History Father Heart failure CVD (cardiovascular disease) S/P triple vessel bypass Mother Lung cancer Social History Housing: Apartment Alcohol intake: current Alcohol intake frequency: a few times a week Patient Tobacco Use Status: Current everyday Tobacco user Cigarettes Per Day: 15 Years Smoked: (onset 11yo, x 47yrs, max 2ppd, now 1/2-1ppd - 35pyh) e-Cigarette/Vaping Use: Never Used Second Hand Smoke Exposure: No service: No Current occupational status: disabled Sexual orientation: Straight/Heterosexual Gender identity: Female Cognitive needs: No Hearing needs: No Vision needs: No Review of Systems Const All systems reviewed & are unremarkable except as noted in HPI and below Physical Exam Vital Signs: Last Vital Signs Temp 98.5 F 08/08/24 14:06 Pulse 96 08/08/24 14:12 Resp 14 08/08/24 14:12 BP 111/64 08/08/24 14:12 Pulse Ox 97 08/08/24 14:12 Oxygen Delivery Method Room Air 08/08/24 14:12 Const General: no acute distress Nutritional Appearance: well nourished Orientation/consciousness: patient oriented x3 Back/Spine/Pelvis Back: back tenderness Cervical Spine: cervical muscular tenderness, pain with cervical ROM and cervical spasm Neuro General: patient oriented x3, gait normal and moves all extremities Motor exam (neuro): Abnormal motor strength present (4/5 strength right hand - 5/5 strength left side.) Assessment & Plan Assessment & Plan (1) Cervical myelopathy: Code(s): G95.9 - Disease of spinal cord, unspecified Plan: Ordered Flexeril and Gabapentin. Ordered Pain management referral. Orders: Referrals Pain Management Referral G95.9 - Disease of spinal cord, unspecified Medications: New cyclobenzaprine 5 mg PO BEDTIME 14 tabs 0RF G95.9 - Disease of spinal cord, unspecified gabapentin 100 mg PO BEDTIME 20 caps 0RF G95.9 - Disease of spinal cord, unspecified Coding Level of Care Code Est Pt Level 4 (48908) Diagnoses Cervical myelopathy G95.9 Time Spent (min) 20
[2024-08-08 14:12] VITALS: BP 111/64; PULSE 96; RESP 14; O2SAT 97
== END 2024-08-08 14:45 | disposition home or self-care (01) ==
PROVIDERS: PCP Nurse Practitioner Family; Visit Provider Nurse Practitioner Family
DX: G95.9 Disease of spinal cord, unspecified (principal)

== ENCOUNTER → 2024-08-08 13:39 | Outpatient (BNVA) | payer OTHER, SELFPAY | PROVIDERS: PCP Nurse Practitioner Family; Visit Provider Nurse Practitioner Family | DX: G95.9 Disease of spinal cord, unspecified (principal) | CPT/HCPCS: 99212 ==

== ENCOUNTER 2024-10-09 14:44 | Outpatient (AMB) | payer OTHER, SELFPAY ==
[2024-10-09 14:50] VITALS: BP 164/94; PULSE 67; RESP 16; TEMP 36.7; O2SAT 97; BMI 29.5
--- NOTE | 2024-10-09 14:50 | A.OFFPC_ITS ---
Vital Signs 10/09/24 14:50 Height 5 ft 5 in Weight 177 lb BMI 29.5 BP 164/94 H Blood Pressure Location Rt brachial Position Sitting Respiration 16 Pulse 67 Pulse Source Pulse Oximeter Temp 98.1 F Temp Source Oral Pulse Oximetry (%) 97 Oxygen Delivery Method Room Air Intake Visit Reasons: PE [employer] Secretary Required: No Accompanied by: Self / Same As Patient Allergies codeine (CODEINE) Allergy (Severe, Verified 10/09/24 15:39) ITCHY, itch aspirin Allergy (Unknown, Verified 10/09/24 15:39) upset stomach Medication List - Last Reconciled 10/09/24 [facility] No Known Home Meds Tobacco use date assessed: 10/09/24 Dental Screening Dental Screen Date: 10/09/24 Did you have a dental visit in the last 12 months?: No Did you have a dental problem in the last 6 months where you did not have access to dental care?: No Was dental information given to patient?: Patient declined (has dentures) HPI PE HPI Details History of Present Illness The patient is a 59-year-old female presenting for a physical examination and management of chronic conditions. She has a history of cervical radiculopathy with ongoing neck pain and severe radicular symptoms extending to the right upper extremity. Multiple interventions have been attempted, including physical therapy and injections, but the symptoms persist. The patient reports increased pain with neck movements such as turning the head side to side and neck flexion. The patient continues to smoke approximately half a pack of cigarettes per day and undergoes annual low-dose CT scans for lung cancer screening. She has a history of hypertension, for which losartan is being restarted due to elevated blood pressure readings. The patient will monitor her blood pressure at home and report the values for further management. The patient is obese, which may contribute to her slightly diminished lung sounds noted during the examination. 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 Social History - Tobacco use: Smokes approximately 0.5 pack per day Review of Systems - Musculoskeletal: Reports ongoing neck pain with radicular symptoms in the right upper extremity - Respiratory: Denies cough or wheezing -denies any cp, sob, n/v, blood in stool , constipation, diarrhea, SI or HI Physical Exam General: Cooperative, healthy appearing, comfortable, no acute distress and well developed, obese Orientation: Patient oriented x3 Limitations: No limitations Head: Normal to inspection Ears: Hearing grossly normal bilaterally Nose: Normal external nose present Face and sinus: Normal facial exam Eyes: Appearance normal, both eyes and all related structures Neck: Radiculopathy noted (RUE) in cervical neck pain increased with turning head side to side, neck flexion, also with chin raises and chin tucks, and positive spurlings test Respiratory: Lungs were clear though slightly diminished Cardiovascular: Regular rate and rhythm. Normal S1 and S2 GI: Normal to inspection. Soft to palpation and nontender Skin: No rashes or lesions noted Neuro: Patient oriented x3 Extremities: Ongoing neck pain with pretty severe radicular symptoms going down her right upper extremity Results Plan The patient will undergo an EMG of the right upper extremity to assess the radicular symptoms and an X-ray of the cervical spine to evaluate the ongoing neck pain. Losartan will be restarted to manage her hypertension, and she will monitor her blood pressure at home, providing values for further adjustment of her treatment plan. The patient is advised to continue her annual low-dose CT scans for lung cancer screening due to her smoking history. Discussion Notes I discussed with the patient the need for an EMG and cervical spine X-ray to further evaluate her neck pain and radicular symptoms. We also talked about restarting losartan to manage her hypertension and the importance of home blood pressure monitoring. Additionally, I emphasized the continuation of her annual low-dose CT scans for lung cancer screening given her smoking history. Patient Instructions - Schedule and complete EMG and cervical spine X-ray. - Restart losartan as prescribed and mon itor blood pressure at home. - Continue annual low-dose CT scans for lung cancer screening. [facility] Medical History Cervical myelopathy Hypertension High cholesterol Nicotine dependence, cigarettes, uncomplicated Surgical History H/O shoulder surgery Status post cryoablation History of lumpectomy of left breast History of tonsillectomy Family History Father Heart failure CVD (cardiovascular disease) S/P triple vessel bypass Mother Lung cancer Social History Housing: Apartment Alcohol intake: current Alcohol intake frequency: a few times a week Patient Tobacco Use Status: Current everyday Tobacco user Cigarettes Per Day: 15 Years Smoked: (onset 11yo, x 47yrs, max 2ppd, now 1/2-1ppd - 35pyh) e-Cigarette/Vaping Use: Never Used Second Hand Smoke Exposure: No service: No Current occupational status: disabled Sexual orientation: Straight/Heterosexual Gender identity: Female Cognitive needs: No Hearing needs: No Vision needs: No Questionnaire PHQ-9 Over the last 2 weeks, how often have you been bothered by any of the following problems? 1. Little interest or pleasure in doing things: not at all 2. Feeling down, depressed, or hopeless: not at all 3. Trouble falling or staying asleep, or sleeping too much: not at all 4. Feeling tired or having little energy: several days 5. Poor appetite or overeating: more than half the days 6. Feeling bad about yourself - or that you are a failure or have let yourself or your family down: not at all 7. Trouble concentrating on things, such as reading the newspaper or watching television: not at all 8. Moving or speaking so slowly that other people could have noticed. Or the opposite - being so fidgety or restless that you have been moving around a lot more than usual: not at all 9. Thoughts that you would be better off or of hurting yourself in some way: not at all Total score: 3 Depression Screening Interpretation: Negative Depression Screening Done: Yes 16517 - PHQ-9 Billing: Yes Source: Developed by Drs. Damon Zavala, Geraldine Will, Vinny Don and colleagues, with an educational narendra from [employer]. Thrive Questionnaire Date Thrive assessed: 09/12/23 I am a: Patient What is your living situation today?: I have a steady place to live Within the past 12 months, did the food you bought not last and you didn't have the money to get more?: Never true Within the past 12 months, did you worry whether your food would run out before you got money to buy more?: Never true Do you have trouble paying for medicines?: No Do you have trouble getting transportation to medical appointments?: No Do you have trouble paying your heating and electricity bill?: No Do you have trouble taking care of your child, family member or friend?: No Do you have trouble with day-to-day activities such as bathing, preparing meals, shopping, managing finances, etc.?: No Are you currently unemployed and looking for a job?: No Are you interested in more education?: No Please select the resources that you would like help with: None Currently or been in a relationship where the following occur: I choose not to answer THRIVE Score: 0 AUDIT C Alcohol Use Questionnaire (AUDIT-C) 1. How often do you have a drink containing alcohol?: 2-4 times a month 2. How many drinks containing alcohol do you have on a typical day when you are drinking?: 3 or 4 3. How often do you have six or more drinks on one occasion?: Never Total Score: 3 JOSE-7 AMB Questionnaire JOSE-7 Date JOSE - 7 assessed: 10/09/24 Feeling nervous, anxious, or on edge: 0 = Not at all Not being able to stop or control worryin = Not at all Worrying too much about different things: 0 = Not at all Trouble relaxin = Not at all Being so restless that it is hard to sit still: 0 = Not at all Becoming easily annoyed or irritable: 0 = Not at all Feeling afraid as if something awful might happen: 0 = Not at all Total JOSE-7 score (0-4 normal; 5-9 mild; 10-14 moderate; 15-21 severe): 0 Source: Developed by Drs. Damon Zavala, Geraldine Will, Vinny Don and colleagues, with an educational narendra from [employer]. JOSE-7 Assessment Billing JOSE-7 Assessment Tool: JOSE-7 Assessment 16385 Physical exam (Primary Care) Vital Signs: Last Vital Signs Temp 98.1 F 10/09/24 14:50 Pulse 67 10/09/24 14:50 Resp 16 10/09/24 14:50 BP 164/94 H 10/09/24 14:50 Pulse Ox 97 10/09/24 14:50 Oxygen Delivery Method Room Air 10/09/24 14:50 BMI result Body Mass Index 29.5 Tobacco/Smoking Status: Tobacco use Status Tobacco use date assessed 10/09/24 10/09/24 14:55 Patient Tobacco Use Status Current everyday Tobacco 10/09/24 14:55 e-Cigarette/Vaping Use Never Used 10/09/24 14:55 PHQ-9: PHQ-9 Score PHQ-9: Total score 3 10/09/24 14:55 Depression Screening Interpretation: Negative Thrive Assessment: Date of Thrive Assessment Date Thrive assessed 09/12/23 10/09/24 14:55 Currently or been in a relationship where the following occur: I choose not to answer Coding Level of Care Code Est Pt Level 3 (48005) Est Pt Prev Care 40-64y(39266) Diagnoses Physical exam Z00.00 Vitamin D deficiency E55.9 Cervical myelopathy G95.9 Cervical neck pain with evidence of disc disease M50.90 Postmenopausal Z78.0 Additional Codes JOSE-7 Assessment Billing - JOSE-7 Assessment Tool: JOSE-7 Assessment 97862 ([id number]) PHQ-9 - 83606 - PHQ-9 Billing: Yes ([id number]) Assessment & Plan Assessment & Plan (1) Physical exam: Code(s): Z00.00 - Encounter for general adult medical examination without abnormal findings Category: Medical (2) Vitamin D deficiency: Code(s): E55.9 - Vitamin D deficiency, unspecified Category: Medical (3) Cervical myelopathy: Code(s): G95.9 - Disease of spinal cord, unspecified Category: Medical (4) Cervical neck pain with evidence of disc disease: Comment: radicular symptoms down RUE Code(s): M50.90 - Cervical disc disorder, unspecified, unspecified cervical region Category: Medical (5) Postmenopausal: Code(s): Z78.0 - Asymptomatic menopausal state Category: Medical Plan . Orders: Orders Complete Blood Count Auto Diff Today Z00.00 - Encounter for general adult medical examination without abnormal findings Comprehensive [place]. Panel Fast Today Z00.00 - Encounter for general adult medic al examination without abnormal findings TSH reflex Free T4 Today Z00.00 - Encounter for general adult medical examination without abnormal findings UA CC w/rflx Micro + Cult Today Z00.00 - Encounter for general adult medical examination without abnormal findings Vitamin D 25-OH Total Today E55.9 - Vitamin D deficiency, unspecified XR DEXA axial skeleton Today E55.9 - Vitamin D deficiency, unspecified, Z78.0 - Asymptomatic menopausal state Lipid Panel Today Z00.00 - Encounter for general adult medical examination without abnormal findings XR cervical spine 2V Today G95.9 - Disease of spinal cord, unspecified, M50.90 - Cervical disc disorder, unspecified, unspecified cervical region NE nerve conduction velocity Today G95.9 - Disease of spinal cord, unspecified, M50.90 - Cervical disc disorder, unspecified, unspecified cervical region NE electromyogram (EMG) Today G95.9 - Disease of spinal cord, unspecified, M50.90 - Cervical disc disorder, unspecified, unspecified cervical region Medications: New losartan 25 mg PO DAILY 30 tabs 3RF 30 days
== END 2024-10-09 16:24 | disposition home or self-care (01) ==
LOC: HO.HMCC 14:44
PROVIDERS: PCP Nurse Practitioner Family; Visit Provider Nurse Practitioner Family
DX: Z00.00 Encounter for general adult medical examination without abnormal findings (principal); E55.9 Vitamin D deficiency, unspecified; G95.9 Disease of spinal cord, unspecified; M50.90 Cervical disc disorder, unspecified, unspecified cervical region; Z78.0 Asymptomatic menopausal state

== ENCOUNTER → 2024-10-09 14:44 | Outpatient (BNVA) | payer OTHER, SELFPAY | PROVIDERS: PCP Nurse Practitioner Family; Visit Provider Nurse Practitioner Family | DX: Z00.00 Encounter for general adult medical examination without abnormal findings (principal); M54.12 Radiculopathy, cervical region; I10 Essential (primary) hypertension; E66.9 Obesity, unspecified; E55.9 Vitamin D deficiency, unspecified; G95.9 Disease of spinal cord, unspecified; M50.90 Cervical disc disorder, unspecified, unspecified cervical region; F17.210 Nicotine dependence, cigarettes, uncomplicated; Z78.0 Asymptomatic menopausal state; Z68.29 Body mass index [BMI] 29.0-29.9, adult | CPT/HCPCS: 96127; 99212; 99396 ==

== ENCOUNTER 2024-10-21 12:58 | Emergency (ER) | payer OTHER, SELFPAY ==
[2024-10-21 12:59] VITALS: BP 138/62; PULSE 91; RESP 20; TEMP 37; O2SAT 96; BMI 29.1
--- NOTE | 2024-10-21 13:03 | ECG_ITS ---
Test Reason : LEFT FACE/ARM NUMBNESS Blood Pressure : */* mmHG Vent. Rate : 90 BPM Atrial Rate : 90 BPM P-R Int : 170 ms QRS Dur : 90 ms QT Int : 360 ms P-R-T Axes : 61 43 48 degrees QTcB Int : 440 ms Normal sinus rhythm Normal ECG When compared with ECG of 22-Feb-2006 23:22, No significant change was found Referred By: Chino Sheffield Electronically Signed By: Heber Thomas
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
[2024-10-21 13:19] LABS: MANUAL DIFF FLAG NO
[2024-10-21 13:20] LABS: Hematocrit 39.5 % (37.0-47.0); Hemoglobin 13.8 g/dl (12.0-16.0); Imm Gran Abs Auto 0.02 X10*3/uL (0.00-0.03); Imm Gran Pct Auto 0.3 % (0.0-0.4); Lymphocytes Absolute Auto 3.2 X10*3/uL (1.2-4.9); Mean Corpuscular HGB Conc 34.9 g/dl (31.0-35.0); Mean Corpuscular Hemoglobin 31.5 pg (27.0-33.0); Mean Corpuscular Volume 90.2 fL (80.0-98.0); NRBC Abs Auto 0.000 X10*3/uL (0.0-0.012); NRBC Pct Auto 0.0 /100WBC (0.0-0.2); Platelet Count 242 X10*3/uL (160-400); Red Blood Count 4.38 X10*6/uL (4.20-5.50); White Blood Count 7.8 X10*3/uL (4.8-10.8)
[2024-10-21 13:25] LABS: INTERNATIONAL NORM RATIO 0.9 (0.9-1.1); Prothrombin Time 10.7 SEC (10.9-12.4)
[2024-10-21 13:28] LABS: Partial Thromboplastin Time 28.1 SEC (26.7-34.1)
[2024-10-21 13:30] VITALS: BP 132/59; PULSE 80; RESP 17; TEMP 36.4; O2SAT 94
--- NOTE | 2024-10-21 13:37 | PC.NURSE ---
Pt alert and oriented x3. Reports headache pain in forehead 8/10 pain. 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 Pain in right shoulder and neck r/t previous shoulder. numbness in face (left) and left hand. Normally her right hand has numbness and right lateral upper leg numbness.
[2024-10-21 13:39] LABS: Alanine Aminotransferase 18 U/L (0-31); Albumin Level 4.4 g/dL (3.5-5.0); Alkaline Phosphatase 81 U/L (39-117); Anion Gap 14 (12-20); Aspartate Amino Transferase 27 U/L (5-31); Blood Urea Nitrogen 13 mg/dL (9-16); Calcium 8.8 mg/dL (8.4-10.2); Carbon Dioxide 22 mmol/L (22-29); Chloride 105 mmol/L (96-108); Creatinine Clr Calc Pharmacy 90.8; Estimated Glomerular Filt Rate > 60; Magnesium 2.3 mg/dL (1.6-2.6); Potassium 3.6 mmol/L (3.3-5.1); Sodium 137 mmol/L (135-145); Total Protein 6.9 g/dL (6.5-8.0)
[2024-10-21 13:49] LABS: Troponin-I High Sensitivity < 2.7 ng/L (<3.5-17.0)
[2024-10-21 14:05] VITALS: BP 110/61; PULSE 80; RESP 18; TEMP 36.5; O2SAT 95
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
== END 2024-10-21 14:10 | disposition left against medical advice (07) ==
PROVIDERS: Physician Assistant; Emergency Provider Emergency Medicine; PCP Nurse Practitioner Family
DX: R20.0 Anesthesia of skin (principal); I10 Essential (primary) hypertension; E78.5 Hyperlipidemia, unspecified; Z53.29 Procedure and treatment not carried out because of patient's decision for other reasons
CPT/HCPCS: 36415; 80053; 80307; 83735; 84484; 85025; 85610; 85730; 93005; 99283; 99284

== ENCOUNTER → 2024-10-21 13:03 | Outpatient (BNV) | payer OTHER, SELFPAY | PROVIDERS: Emergency Provider Emergency Medicine; PCP Nurse Practitioner Family; Visit Provider Internal Medicine Cardiovascular Disease | DX: R20.0 Anesthesia of skin (principal) | CPT/HCPCS: 93010 ==

== ENCOUNTER 2024-11-15 06:28 | Outpatient (REF) | payer OTHER, SELFPAY ==
--- NOTE | ~2024-11-15 | XR_ITS ---
EXAMINATION: XR CERVICAL SPINE CLINICAL INFORMATION: M50.90 - Cervical disc disorder, unspecified, unspecified cervical region COMPARISON: None available. TECHNIQUE: 2 views of the cervical spine were obtained. FINDINGS: There is no scoliosis. There is straightening of the normal lordosis. There is no subluxation. There is anatomical alignment. There are no fractures, compression deformities, or suspicious bone lesions. The craniocervical junction, and C1-C2 articulation are intact and aligned. Moderate disc degeneration is present C4-5, C5-6, and lesser at C6-7. Multilevel degenerative hypertrophic facet changes are present bilaterally. Facets are normally aligned. There is no prevertebral soft tissue abnormality. The imaged lung apices are clear. XR/XR cervical spine 2V IMPRESSION: 1. No acute abnormalities of the cervical spine. 2. Moderate spondylosis most significant C5-C7. Electronically signed by: Jf Flower MD 11/15/2024 08:51 AM EDT
[2024-11-15 10:14] LABS: MANUAL DIFF FLAG NO
[2024-11-15 10:27] LABS: Appearance Urine Clear; Glucose Urine UA Negative (Negative); PH 6.5 (5.0-9.0); Specific Gravity - Urine 1.010 (1.005-1.025)
[2024-11-15 10:32] LABS: Hematocrit 42.4 % (37.0-47.0); Hemoglobin 14.0 g/dl (12.0-16.0); Imm Gran Abs Auto 0.02 X10*3/uL (0.00-0.03); Imm Gran Pct Auto 0.3 % (0.0-0.4); Lymphocytes Absolute Auto 2.2 X10*3/uL (1.2-4.9); Mean Corpuscular HGB Conc 33.0 g/dl (31.0-35.0); Mean Corpuscular Hemoglobin 31.0 pg (27.0-33.0); Mean Corpuscular Volume 94.0 fL (80.0-98.0); NRBC Abs Auto 0.000 X10*3/uL (0.0-0.012); NRBC Pct Auto 0.0 /100WBC (0.0-0.2); Platelet Count 268 X10*3/uL (160-400); Red Blood Count 4.51 X10*6/uL (4.20-5.50); White Blood Count 6.0 X10*3/uL (4.8-10.8)
[2024-11-15 11:19] LABS: Alanine Aminotransferase 16 U/L (0-31); Albumin Level 4.5 g/dL (3.5-5.0); Alkaline Phosphatase 68 U/L (39-117); Anion Gap 11 (12-20); Aspartate Amino Transferase 24 U/L (5-31); Blood Urea Nitrogen 10 mg/dL (9-16); Calcium 9.3 mg/dL (8.4-10.2); Carbon Dioxide 28 mmol/L (22-29); Chloride 104 mmol/L (96-108); Cholesterol 198 mg/dL (<200); Estimated Glomerular Filt Rate > 60; HDL Cholesterol 57 mg/dL (>40); Potassium 4.4 mmol/L (3.3-5.1); Sodium 139 mmol/L (135-145); Total Protein 7.1 g/dL (6.5-8.0); Triglycerides 80 mg/dL (<150)
== END 2024-11-15 06:29 | disposition home or self-care (01) ==
LOC: HO.HMGCX 06:28
PROVIDERS: PCP Nurse Practitioner Family; Visit Provider Nurse Practitioner Family
DX: Z00.00 Encounter for general adult medical examination without abnormal findings (principal); E55.9 Vitamin D deficiency, unspecified; M50.90 Cervical disc disorder, unspecified, unspecified cervical region
CPT/HCPCS: 36415; 72040; 80053; 80061; 81003; 82306; 84443; 85025

== ENCOUNTER → 2024-11-15 08:35 | Outpatient (BNV) | payer OTHER, SELFPAY | PROVIDERS: PCP Nurse Practitioner Family; Visit Provider Radiology Diagnostic Radiology | DX: M47.812 Spondylosis without myelopathy or radiculopathy, cervical region (principal) | CPT/HCPCS: 72040 ==

== ENCOUNTER → 2024-11-29 07:54 | Outpatient (BNVA) | payer OTHER, SELFPAY | PROVIDERS: PCP Nurse Practitioner Family | DX: I10 Essential (primary) hypertension (principal) | CPT/HCPCS: 99211 ==

== ENCOUNTER 2024-12-10 07:39 | Outpatient (REF) | payer OTHER, SELFPAY ==
--- NOTE | 2024-12-10 07:42 | EMG_ITS ---
Chief complaint: Pain / numbness of bilateral upper extremity Reason for referral: Cervical myelopathy G95.9 Referred by: Adalid Aguirre NP Procedure done: NSC bilateral upper extremity with EMG performed Bilateral median and ulnar motor studies were performed. Bilateral median and ulnar mixed sensory, radial sensory, and median and lateral antecubital brachial sensory studies were performed an EMG needle examination was performed. Right median motor distal latencies were slightly prolonged. Bilateral median mixed distal latencies were slightly prolonged. Long duration polyphasic motor unit potentials were noted in bilateral mid cervical paraspinals and triceps. Impression: 1. Mild bilateral median neuropathy across carpal tunnel 2. Chronic bilateral mid cervical radiculopathy MTDD
== END 2024-12-10 07:40 | disposition home or self-care (01) ==
LOC: HO.NEURO 07:39
PROVIDERS: PCP Nurse Practitioner Family; Visit Provider Nurse Practitioner Family
DX: G95.9 Disease of spinal cord, unspecified (principal); M50.90 Cervical disc disorder, unspecified, unspecified cervical region
CPT/HCPCS: 95886; 95913

== ENCOUNTER → 2024-12-10 07:42 | Outpatient (BNV) | payer OTHER, SELFPAY | PROVIDERS: PCP Nurse Practitioner Family; Visit Provider Psychiatry & Neurology Neurology | DX: G56.03 Carpal tunnel syndrome, bilateral upper limbs (principal) | CPT/HCPCS: 95886; 95912 ==

== ENCOUNTER 2024-12-11 07:50 | Outpatient (REF) | payer OTHER, SELFPAY ==
--- NOTE | ~2024-12-11 | CT_ITS ---
EXAMINATION: CT LOW-DOSE SCREENING CHEST WITHOUT CONTRAST CLINICAL INFORMATION: 59-year-old female, current smoker, 46 pack years. Lung cancer screening. COMPARISON: 10/27/2023. TECHNIQUE: Multidetector volumetric CT imaging of the chest is performed on a Siemens SOMATOM Definition scanner without contrast using low dose technique. Additional 2D coronal and sagittal reformatted images and axial 3D maximum intensity projection (MIP) images are generated on the CT workstation. This CT examination was performed using dose optimization techniques as appropriate, variously including the following: *Automated exposure control *Adjustment of mA and/or kV according to patient size (this includes techniques or standardized protocols for targeted exams where dose is matched to indication/reason for exam; i.e. extremities or head) *Use of iterative reconstruction technique FINDINGS: PULMONARY NODULES: -There are a few stable scattered tiny micronodules in both lungs, none greater than 3 mm, entirely unchanged from the prior exam. -Triangular-shaped 4 mm nodule in the lingula, fissural based, (series 5, image 117), unchanged and likely an intrapulmonary lymph node, versus area of nodular scarring. -There is no new or enlarging pulmonary nodule. LUNGS: Mild centrilobular emphysema is present. Lungs are well expanded and otherwise clear. There are no abnormal opacities or interstitial abnormalities. The small airways appear normal. The central airways are patent. There is no pleural effusion or pneumothorax. MEDIASTINUM: Thyroid demonstrates a left-sided 6 mm nodule. This is too small to recommend follow-up. Thyroid otherwise normal. No mediastinal adenopathy or mass. Aorta is normal in caliber and course. No significant atheromatous calcification. Impression pulmonary artery is normal in size. Heart size is normal. There is no pericardial effusion. There is no esophageal abnormality. CORONARY ARTERY CALCIFICATION: Minimal. CHEST WALL/AXILLA: There is a 1.2 cm nodule in the left superior breast, stable from the prior year, consistent with a benign etiology. This has been evaluated on prior mammograms. There is no abnormal lymphadenopathy. UPPER ABDOMEN: Imaged upper abdominal contents appear normal allowing for low-dose noncontrast technique. OSSEOUS STRUCTURES: No suspicious lytic or blastic bone lesion. Mild spinal degenerative changes. CT/CT lung screening IMPRESSION: 1. A few scattered micronodules present, entirely unchanged from the prior examination. No new or enlarging pulmonary nodule. 2. Mild emphysema. No active lung disease. ASSESSMENT: 1. Lung-RADS Category 2: Benign appearance or behavior of nodules. 2. Lung-RADS Category S: None. RECOMMENDATION: Continued routine annual low-dose CT lung screening in 1 year is recommended. An order for CT CHEST LOW DOSE CANCER SCREENING ([id number]) can be placed. Electronically signed by: Jf Flower MD 12/11/2024 08:46 AM EDT
== END 2024-12-11 07:51 | disposition home or self-care (01) ==
LOC: HO.CT 07:50
PROVIDERS: Visit Provider Physician Assistant Medical
DX: Z12.2 Encounter for screening for malignant neoplasm of respiratory organs (principal); F17.210 Nicotine dependence, cigarettes, uncomplicated
CPT/HCPCS: 71271

== ENCOUNTER → 2024-12-11 07:56 | Outpatient (BNV) | payer OTHER, SELFPAY | PROVIDERS: Visit Provider Radiology Diagnostic Radiology | DX: F17.210 Nicotine dependence, cigarettes, uncomplicated (principal) | CPT/HCPCS: 71271 ==

== ENCOUNTER 2025-01-08 09:23 | Outpatient (AMB) | payer OTHER, SELFPAY ==
--- NOTE | 2025-01-08 09:28 | AM.OFFWIN_ITS ---
Intake Vital Signs 01/08/25 09:29 Height 5 ft 6 in Weight 176 lb BMI 28.4 BP 130/64 Blood Pressure Location Rt brachial Position Sitting Pulse 84 Pulse Source Pulse Oximeter Temp 98.4 F Temp Source Oral Pulse Oximetry (%) 97 Oxygen Delivery Method Room Air Intake Visit Reasons: eP cough alot a phlegm Intake Note: Patient presents c/o cough x2 weeks. Has tried OTC products with no relief or improvement of symptoms. Patient Tobacco Use Status: Current everyday Tobacco user Allergies codeine (CODEINE) Allergy (Severe, Verified 01/08/25 09:30) ITCHY, itch aspirin Allergy (Unknown, Verified 01/08/25 09:30) upset stomach HPI eP cough alot a phlegm HPI Details This is a 59 year old female patient with a past medical history of hypertension, nicotine dependence, who presents to the walk-in clinic today with a 2 week history of productive cough with yellow/ white sputum. She states that the cough has been so severe that it is keeping her up all night. In fact, she has had some post tussive vomiting. She has tried [id number] Robitussin and cough drops without any relief. She denies any fevers /chills. Denies any other complaints today. Has abstained from smoking since being sick. [facility] Medical History Cervical myelopathy Hypertension High cholesterol Nicotine dependence, cigarettes, uncomplicated Surgical History H/O shoulder surgery Status post cryoablation History of lumpectomy of left breast History of tonsillectomy Family History Father Heart failure CVD (cardiovascular disease) S/P triple vessel bypass Mother Lung cancer Social History Housing: Apartment Alcohol intake: current Alcohol intake frequency: a few times a week Patient Tobacco Use Status: Current everyday Tobacco user Cigarettes Per Day: 15 Years Smoked: (onset 11yo, x 47yrs, max 2ppd, now 1/2-1ppd - 35pyh) e-Cigarette/Vaping Use: Never Used Second Hand Smoke Exposure: No service: No Current occupational status: disabled Sexual orientation: Straight/Heterosexual Gender identity: Female Cognitive needs: No Hearing needs: No Vision needs: No Review of Systems Const All systems reviewed & are unremarkable except as noted in HPI and below Physical Exam Vital Signs: Last Vital Signs Temp 98.4 F 01/08/25 09:29 Pulse 84 01/08/25 09:29 BP 130/64 01/08/25 09:29 Pulse Ox 97 01/08/25 09:29 Oxygen Delivery Method Room Air 01/08/25 09:29 BMI result Body Mass Index 28.4 Const General: cooperative and healthy appearing Limitations: no limitations HEENT Head: Yes normal to inspection Ears: hearing grossly normal bilaterally General nose exam: Normal external nose present and Normal nasal mucous membranes and turbinates present Face and sinus: Yes normal facial exam Throat: Yes posterior oropharynx normal Neck Neck: Yes no lymphadenopathy Resp Effort & Inspection: normal respiratory effort and Actively coughing Quality: actively coughing Auscultation: rhonchi upper bilaterally and wheezes scattered wheezes Cardio Palpation: normal PMI Rate: regular rate Rhythm: regular rhythm Skin General skin exam: no rashes or lesions noted Extrem General: Yes no clubbing, cyanosis or edema Psych Appearance: grossly normal Mental Status: mental status grossly normal Speech and movement: Normal speech and movement present Assessment & Plan Assessment & Plan (1) Cough in adult patient: Code(s): R05.9 - Cough, unspecified Plan: Prednisone and benzonatate prescribed for persistent cough unrelieved with conservative measures/[id number]-trwrlgy products. We reviewed the indications, use, possible side effects of medications prescribed. I commended her reduction in smoking and encouraged continued cessation. We discussed that if she develops any worsening symptoms, respiratory distress, fevers / chills, lack of relief with prescribed regimen, to return to the clinic for further evaluation. Patient verbalizes understanding and agrees to plan. Medications: New prednisone 40 mg (2 x 20 mg) PO DAILY 10 tabs 0RF 5 days R05.9 - Cough, unspecified benzonatate 100 mg PO BID PRN 14 caps 0RF cough 7 days R05.9 - Cough, unspecified Coding Level of Care Code Est Pt Level 4 (53007) Diagnoses Cough in adult patient R05.9
[2025-01-08 09:29] VITALS: BP 130/64; PULSE 84; TEMP 36.9; O2SAT 97; BMI 28.4
== END 2025-01-08 10:18 | disposition home or self-care (01) ==
PROVIDERS: PCP Nurse Practitioner Family; Visit Provider Nurse Practitioner Family
DX: R05.9 Cough, unspecified (principal)

== ENCOUNTER → 2025-01-08 09:23 | Outpatient (BNVA) | payer OTHER, SELFPAY | PROVIDERS: PCP Nurse Practitioner Family; Visit Provider Nurse Practitioner Family | DX: R05.9 Cough, unspecified (principal); R09.3 Abnormal sputum; R09.89 Other specified symptoms and signs involving the circulatory and respiratory systems; R06.2 Wheezing; F17.210 Nicotine dependence, cigarettes, uncomplicated | CPT/HCPCS: 99212 ==

== ENCOUNTER 2025-01-22 07:19 | Outpatient (REF) | payer OTHER, SELFPAY ==
--- NOTE | ~2025-01-22 | MR_ITS ---
EXAMINATION: MR CERVICAL SPINE WITHOUT CONTRAST CLINICAL INFORMATION: M 50.90. Cervical disc disorder, unspecified. COMPARISON: Correlated to x-ray dated November 15, 2024. TECHNIQUE: MRI of the cervical spine was obtained using routine sequences without contrast. FINDINGS: Endocervical junction is intact. Normal position of the cerebellar tonsils. Mild bone marrow STIR signal in the inferior endplate of C4 and superior endplate of C5 related to Modic type I endplate changes. Marginal osteophyte formation decreased intervertebral disc height and signal at C4-5, C5-6 and C6-7 levels. 1 mm retrolisthesis C5-6. Loss of the physiologic cervical lordosis. Cervical spinal cord signal is normal. C2-3: No disc herniation. No neuroforamina stenosis. C3-4: Left-sided broad-based disc osteophyte compresses formation resulting in ventral deformity of spinal cord. Left neuroforamina narrowing. C4-5: Broad-based disc osteophyte compresses formation resulting in ventral deformity of the thecal sac. Bilateral neuroforamina narrowing. C5-6: Broad-based disc osteophyte compresses formation resulting in ventral deformity of the thecal sac. No gross neuroforamina stenosis. C6-7: Broad-based disc osteophyte complex formation resulting in ventral deformity of the thecal sac. No neuroforamina stenosis. C7-T1: No disc herniation. No neuroforamina stenosis. Right perineural cyst at T1-2. No prevertebral compartment hematoma, mass or fluid collection. Flow-void signal within the main vessels is normal. MR/MR cervical spine wo con IMPRESSION: Multilevel cervical spondylosis C3-4 to C6-7 resulting in mild central spinal canal stenosis, left neuroforamina stenosis at C3-4. Grade 1 retrolisthesis C5-6 on a degenerative basis. No cord compression, cord edema and or myelopathy. Electronically signed by: Ariel Ayres MD 01/22/2025 08:24 AM EST
== END 2025-01-22 07:20 | disposition home or self-care (01) ==
LOC: HO.MRI 07:19
PROVIDERS: PCP Nurse Practitioner Family; Visit Provider Nurse Practitioner Family
DX: R94.131 Abnormal electromyogram [EMG] (principal); M50.90 Cervical disc disorder, unspecified, unspecified cervical region; G95.9 Disease of spinal cord, unspecified
CPT/HCPCS: 72141

== ENCOUNTER → 2025-01-22 07:19 | Outpatient (BNV) | payer OTHER, SELFPAY | PROVIDERS: PCP Nurse Practitioner Family; Visit Provider Radiology Diagnostic Radiology | DX: M47.812 Spondylosis without myelopathy or radiculopathy, cervical region (principal); M99.61 Osseous and subluxation stenosis of intervertebral foramina of cervical region | CPT/HCPCS: 72141 ==

== ENCOUNTER 2025-01-29 08:13 | Outpatient (AMB) | payer OTHER, SELFPAY ==
[2025-01-29 08:32] VITALS: BP 136/70; PULSE 73; TEMP 36.4; O2SAT 97; BMI 28.6
--- NOTE | 2025-01-29 08:32 | MHC.OFFWIV ---
Intake Vital Signs 01/29/25 08:32 Height 5 ft 6 in Weight 177 lb BMI 28.6 BP 136/70 Blood Pressure Location Rt brachial Position Sitting Pulse 73 Pulse Source Pulse Oximeter Temp 97.6 F Temp Source Oral Pulse Oximetry (%) 97 Oxygen Delivery Method Room Air Intake Visit Reasons: EP-sore throat Intake Note: Patient presents c/o sore throat x2 days. 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 Patient Tobacco Use Status: Current everyday Tobacco user Allergies codeine (CODEINE) Allergy (Severe, Verified 01/29/25 08:33) ITCHY, itch aspirin Allergy (Unknown, Verified 01/29/25 08:33) upset stomach HPI HPI Comments History of Present Illness Details History of Present Illness - The patient is a 59 year old female presenting with a sore throat. - She was recently exposed to her two granddaughters who have confirmed strep throat. - She complains of a little sore throat that is more pronounced on one side, but denies headache, fever, or visible exudate. - Her temperature was reported to be 97?F, and she has tender lymph nodes. - She has no personal history of strep throat. - Her recent medical history is notable for having bronchitis two weeks prior to this visit. - The patient has a reported allergy to aspirin but no known allergies to antibiotics. - She is a smoker. - She denies fever, cough, congestion, abd pain, or n/v/d. Physical Exam Ears: Hearing grossly normal bilaterally Nose: Normal external nose present Face and sinus: Normal facial exam. No sinus tenderness noted. Mouth: Uvula is midline. Oropharynx is erythematous with no exudates noted. Neck: Normal visual inspection and Yes full ROM. +lymphadenopathy noted. Respiratory: Normal respiratory effort and able to speak in complete sentences. Clear to auscultation bilaterally. No w/r/r noted. Cardiovascular: Regular rate and rhythm. Normal S1 and S2. No m/r/g noted. GI: Normal to inspection. Soft to palpation and nontender. No guarding or rebound tenderness noted. Skin: No rashes or lesions noted. Patient was informed and verbally consented to the use of an ambient scribe for clinic note documentation during this visit. [facility] Medical History Cervical myelopathy Hypertension High cholesterol Nicotine dependence, cigarettes, uncomplicated Surgical History H/O shoulder surgery Status post cryoablation History of lumpectomy of left breast History of tonsillectomy Family History Father Heart failure CVD (cardiovascular disease) S/P triple vessel bypass Mother Lung cancer Social History Housing: Apartment Alcohol intake: current Alcohol intake frequency: a few times a week Patient Tobacco Use Status: Current everyday Tobacco user Cigarettes Per Day: 15 Years Smoked: (onset 11yo, x 47yrs, max 2ppd, now 1/2-1ppd - 35pyh) e-Cigarette/Vaping Use: Never Used Second Hand Smoke Exposure: No service: No Current occupational status: disabled Sexual orientation: Straight/Heterosexual Gender identity: Female Cognitive needs: No Hearing needs: No Vision needs: No Review of Systems Const All systems reviewed & are unremarkable except as noted in HPI and below Physical Exam Vital Signs: Last Vital Signs Temp 97.6 F 01/29/25 08:32 Pulse 73 01/29/25 08:32 BP 136/70 01/29/25 08:32 Pulse Ox 97 01/29/25 08:32 Oxygen Delivery Method Room Air 01/29/25 08:32 BMI result Body Mass Index 28.6 Results AMB Rapid Strep AMB Rapid Strep Negative Last Edit by Mira Best CMA on 01/29/25 08:52 Results Reviewed Results Reviewed: Laboratory Last Values Strep Scn Rapid Clinic Negative 01/29/25 08:51 Assessment & Plan Assessment & Plan (1) Sore throat: Code(s): J02.9 - Acute pharyngitis, unspecified Plan 1. Acute Pharyngitis And Exposure To Streptococcus - Due to the close contact exposure to two granddaughters with confirmed strep throat and the patient's symptoms of a sore throat and tender lymphadenopathy, empirical antibiotic treatment is indicated despite a negative rapid strep test and lack of fever. - A prescription for penicillin will be sent to her pharmacy. - She was instructed to take the medication twice a day for 10 days. - The patient has agreed to start the antibiotic course. - The patient was advised to rest. Orders: Orders AMB Rapid Strep Screen Today Z13.9 - Encounter for screening, unspecified Medications: New penicillin V potassium 500 mg PO BID 20 tabs 0RF 10 days Coding Level of Care Code Est Pt Level 3 (41501) Diagnoses Sore throat J02.9
== END 2025-01-29 09:39 | disposition home or self-care (01) ==
PROVIDERS: PCP Nurse Practitioner Family; Visit Provider Physician Assistant Medical
DX: Z13.9 Encounter for screening, unspecified (principal); J02.9 Acute pharyngitis, unspecified

== ENCOUNTER → 2025-01-29 08:13 | Outpatient (BNVA) | payer OTHER, SELFPAY | PROVIDERS: PCP Nurse Practitioner Family; Visit Provider Physician Assistant Medical | DX: J02.9 Acute pharyngitis, unspecified (principal); Z20.828 Contact with and (suspected) exposure to other viral communicable diseases; F17.210 Nicotine dependence, cigarettes, uncomplicated | CPT/HCPCS: 87880; 99212 ==